=== PATIENT | female | born 1935 | race Caucasian/White ===

== ENCOUNTER 2024-03-05 11:12 | Outpatient (CLI) | payer MEDICARE, SELFPAY | END 2024-03-05 11:13 | disposition home or self-care (01) | LOC: AMB 03-12 06:15 | PROVIDERS: Visit Provider Emergency Medicine | DX: R55 Syncope and collapse (principal) | CPT/HCPCS: A0998 ==

== ENCOUNTER 2024-03-08 16:10 | Observation (INO) | payer MEDICARE, SELFPAY ==
[2024-03-08 16:14] VITALS: BP 124/67; PULSE 74; RESP 18; TEMP 36.7; O2SAT 96
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
[2024-03-08 17:14] LABS: Basophils Absolute Auto 0.05 K/uL (0.00-0.30); Basophils Percent Auto 0.6 % (0.0-3.0); Eosinophils Absolute Auto 0.19 K/uL (0.00-0.50); Eosinophils Percent Auto 2.2 % (0.0-7.0); Hematocrit 37.8 % (33.0-51.0); Hemoglobin* 12.1 gm/dL (12.0-16.0); Immature Granulocytes Abs Auto 0.03 K/uL (0.00-0.30); Immature Granulocytes Pct Auto 0.3 %; Lymphocytes Absolute Auto 1.89 K/uL (0.90-2.90); Lymphocytes Percent Auto 21.8 % (20-44); Mean Corpuscular HGB Conc 32 gm/dL (32-36); Mean Corpuscular Hemoglobin 30 pg (26-34); Mean Corpuscular Volume 94 fL (80-100); Monocytes Percent Auto 10.6 % (0.0-11.0); Neutrophils Absolute Auto 5.58 K/uL (1.7-7.0); Neutrophils Percent Auto 64.5 % (42.0-72.0); Platelet Count* 235 K/uL (140-440); RDW Coefficient of Variation % 13.9 % (11.5-15.5); Red Blood Count 4.03 m/uL (4.00-5.20); White Blood Count* 8.66 K/uL (4.50-11.00)
[2024-03-08 17:19] LABS: Slide Review Reflex No
[2024-03-08 17:28] LABS: Albumin* 4.5 g/dL (3.3-5.0); Chloride* 99 mmol/L (96-114); Potassium* 4.1 mmol/L (3.6-5.1); Sodium* 134 mmol/L (135-149)
[2024-03-08 17:30] LABS: Creatinine* 1.2 mg/dL (0.5-1.5); Estimated Glomerular Filt Rate 44 ml/min
[2024-03-08 17:31] LABS: Alanine Aminotransferase* 16 U/L (4-35); Alkaline Phosphatase* 47 U/L (40-150); Anion Gap 9 mEq/L (7-15); Aspartate Amino Transferase* 27 U/L (12-35); Bilirubin Total* 0.2 mg/dL (0.1-1.5); Blood Urea Nitrogen* 15 mg/dL (7-30); Calcium* 10.1 mg/dL (8.4-10.6); Carbon Dioxide* 26 mmol/L (20-32); Glucose* 104 mg/dL (60-115); Total Protein* 7.1 g/dL (6.0-8.3)
[2024-03-08 18:03] VITALS: BP 135/67; PULSE 80; RESP 18; TEMP 36.9; O2SAT 98
[2024-03-08 18:13] LABS: SARS PCR* Negative SARS-CoV-2 (Negative)
[2024-03-08 18:14] LABS: TSH With Reflex to FT4* 0.729 uIU/mL (0.270-4.200)
[2024-03-08 18:37] VITALS: RESP 18; O2SAT 98
--- NOTE | 2024-03-08 19:00 | PC.NURSE ---
End of Shift: Patient arrived to floor about 1755. Patient vitally stable, lungs clear, BS WNL, NO IV. Patient ambulates independently and denies pain. Patient oriented to self, day of week, and year. Patient is not cohesive when she speaks. Patient has been sitting in recliner eating dinner throughout admission. Patient does verbalize she wants to leave, patient so far has been redirectable.
[2024-03-08 19:21] VITALS: BP 147/71; PULSE 74; RESP 16; TEMP 36.4; O2SAT 98
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
[2024-03-08] MEDS: QUETIAPINE 25 MG TABLET 50 MG PO (20:57)
[2024-03-08] MEDS: DIVALPROEX SODIUM 125 MG CAP.DR.SPR PO (20:58)
[2024-03-08 21:47] LABS: Appearance Urine Clear (Clear); Bilirubin Urine Negative (Negative); Blood Urine Negative (Negative); Color Urine Yellow (Yellow); Glucose Urine Negative (Negative); Ketones Urine Negative (Negative); Leukocyte Esterase Urine Trace (Negative); Nitrite Urine Negative (Negative); Protein Urine Negative (Negative); Urobilinogen Urine 0.2 (0.2-1.0); pH Urine 5.5 (5.0-8.5)
[2024-03-08 22:04] LABS: RBC Urine 0-2 (0-2); Squamous Epithelial Cell Urine Moderate (None-Few)
[2024-03-08] MEDS: TRAZODONE HCL 50 MG TABLET 150 MG PO (22:05)
[2024-03-08 23:14] VITALS: RESP 16; O2SAT 98
--- NOTE | 2024-03-09 05:50 | PC.NURSE ---
End of shift [id number]: Upon initial assessment pt up in room with son-in-law and . pt cooperative and pleasant. Pt was able to have conversation with intermittent garbled words. As the night went on, harder for pt to communicate needs. Family left for the night at pt wanted to go to bed. after an hour pt quite restless but still cooperative. Pt ambulated in belcher x2 with SBA. Pt stated i'm tired but can't sleep. see eMAR for intervention. pt in and out of sleep the rest of the night and remains restless when awake. Pt pleasant throughout shift and able to be reorientated. Taking pills whole with water. Hearing aids at bedside. Continent of bladder. RN 1:1 overnight.
[2024-03-09 07:00] VITALS: RESP 16; O2SAT 99
[2024-03-09] MEDS: CYANOCOBALAMIN (VITAMIN B-12) 500 MCG TABLET 1000 MCG PO (08:28)
[2024-03-09] MEDS: RIVAROXABAN 10 MG TABLET PO (08:29)
[2024-03-09] MEDS: QUETIAPINE 25 MG TABLET PO (08:30)
[2024-03-09 09:23] VITALS: BP 117/81; PULSE 84; RESP 16; TEMP 36.5; O2SAT 99
[2024-03-09] MEDS: DIVALPROEX SODIUM 125 MG CAP.DR.SPR PO ×2 (09:53→20:00)
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
[2024-03-09] MEDS: SERTRALINE 50 MG TABLET 25 MG PO (11:04)
[2024-03-09 15:00] VITALS: RESP 16; O2SAT 98
--- NOTE | 2024-03-09 18:16 | PC.NURSE ---
End of shift [id number]: Pt cooperative and pleasant. Pt was in need of 1:1?during shift with either MITZI die inspector. Pt was responsive to name. Pt had difficulty finding words but was able to hold a conversation for the majority of the time. Pt is hard of hearing.?Pt was restless but still cooperative during the afternoon. Pt stated ?I need to get out of here.? Focus Puller used therapeutic communication and sat with Pt for a period of time before Pt fell asleep.?Pt ambulated in belcher multiple times, SBA. Taking pills whole with water. Continent of bladder. BM today. Reg diet/fluids tolerating well. Pt appears resting with MITZI at bedside, call light within reach. ?
[2024-03-09] MEDS: TRAZODONE HCL 50 MG TABLET 150 MG PO (20:00)
[2024-03-09] MEDS: QUETIAPINE 25 MG TABLET 50 MG PO (20:00)
[2024-03-09 23:00] VITALS: RESP 16
[2024-03-10 03:00] VITALS: RESP 18; O2SAT 97
[2024-03-10 07:00] VITALS: PULSE 84; RESP 18; O2SAT 97
[2024-03-10] MEDS: QUETIAPINE 25 MG TABLET PO (08:32)
[2024-03-10] MEDS: CYANOCOBALAMIN (VITAMIN B-12) 500 MCG TABLET 1000 MCG PO (08:32)
[2024-03-10] MEDS: DIVALPROEX SODIUM 125 MG CAP.DR.SPR PO ×2 (08:32→19:38)
[2024-03-10] MEDS: RIVAROXABAN 10 MG TABLET PO (08:32)
[2024-03-10] MEDS: SERTRALINE 50 MG TABLET 25 MG PO (08:32)
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
[2024-03-10 15:00] VITALS: PULSE 84; RESP 18; O2SAT 97
[2024-03-10] MEDS: TRAZODONE HCL 50 MG TABLET 150 MG PO (19:36)
--- NOTE | 2024-03-10 19:37 | PC.NURSE ---
Pt with hx of dementia was pleasant walking in belcher talking about music in belcher with marketing copywriter as well as sitting by nurses station coloring. No behaviors by pt.
[2024-03-10] MEDS: QUETIAPINE 25 MG TABLET 50 MG PO (19:38)
[2024-03-10] MEDS: ACETAMINOPHEN 325 MG TABLET 650 MG PO (20:13)
[2024-03-10] MEDS: hydrOXYzine pamoate 25 MG CAPSULE PO (20:13)
[2024-03-10 23:50] VITALS: RESP 18
--- NOTE | 2024-03-11 05:47 | PC.NURSE ---
End of shift [id number]: Pt sitting up coloring upon arrival. Pleasant and cooperative. Pt requesting to go to bed at 1930. Evening meds given early so pt could rest. Pt quite restless for awhile. See eMAR for interventions. Once pt settled in, she slept through the night. Pt quite confused but pleasant, cooperative and directable overnight.
[2024-03-11 07:00] VITALS: PULSE 77; RESP 18; O2SAT 94
[2024-03-11] MEDS: hydrOXYzine pamoate 25 MG CAPSULE PO ×2 (07:53→13:16)
[2024-03-11] MEDS: SERTRALINE 50 MG TABLET 25 MG PO (07:53)
[2024-03-11] MEDS: CYANOCOBALAMIN (VITAMIN B-12) 500 MCG TABLET 1000 MCG PO (07:53)
[2024-03-11] MEDS: DIVALPROEX SODIUM 125 MG CAP.DR.SPR PO ×2 (07:54→23:36)
[2024-03-11] MEDS: QUETIAPINE 25 MG TABLET PO ×2 (07:54→13:58)
[2024-03-11] MEDS: SODIUM CHLORIDE 0.9 % (FLUSH) 10 ML SYRINGE 5 ML IVF ×2 (07:54→23:37)
[2024-03-11] MEDS: RIVAROXABAN 10 MG TABLET PO (07:54)
[2024-03-11 08:00] VITALS: BP 135/61; PULSE 77; RESP 16; TEMP 36.6; O2SAT 95
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
--- NOTE | 2024-03-11 10:32 | PC.NURSE ---
Nursing assistants walked several times in both hallways with Julita. She was able to talk some about her life and working in [place] for a couple years. Then when she came back got , [place] and had 2 kids.
[2024-03-11 15:00] VITALS: PULSE 76; RESP 16; O2SAT 99
[2024-03-11 15:30] VITALS: BP 135/73; PULSE 76; RESP 16; TEMP 36.6; O2SAT 99
--- NOTE | 2024-03-11 16:19 | PC.SOCIAL ---
Addendum entered and electronically signed by MIGUEL ANGEL Good 03/12/24 09:42: Discharge planning/late entry: machine clothing worker also sent pt's daughter Payal an informational sheet on [facility] and a list of Area [facility] Facilities to her email at [email or web address]. Social work to follow-up as needed. Addendum entered and electronically signed by MIGUEL ANGEL Good 03/12/24 09:37: Discharge planning/late entry: machine clothing worker heard back from Kimani at [facility] late in the day yesterday and they shared that after reviewing the pt's documents that this worker sent earlier, they would be unable to accept the pt to their Memory Care facility due to her wandering and exit seeking and history of striking out at people although that has not been an issue in the hospital at all. Kimani asked that this worker inform the daughter of this update and that she will need to look for a different Memory Care facility. Kimani stated that if the pt's daughter had any questions she could reach out to them. Social work to follow-up as needed. Original Note: Discharge planning: machine clothing worker has been in contact with pt's daughter, Payal #[phone], throughout the day today. Payal and her family had started looking at Memory Care options for the pt last week and were interested in [facility]. Payal said that she originally looked at [facility] [place] and spoke to the director there who suggested that the family look at [facility] for placement as they most likely would not be able to meet the pt's needs at [facility]. machine clothing worker talked to JINA Licea at [facility] #[phone] and she stated that they were waiting on more medical records from [facility] in [place], [place] for the pt, but she also requested that this worker send her documentation from this hospital visit and a copy of the pt's POA, if available. machine clothing worker checked with pt's daughter, Payal, to see if this was okay with her and she said that it was okay for this worker to send all those requested documents to the [facility]. machine clothing worker sent to them to Anuja via secure email at [email or web address]. machine clothing worker also spoke to Jackelyn Iqbal #[phone], APS Investigation worker at [facility] who has an open case on the pt and stated that she has been helping pt's son, Anthony, with completing the MA application today over the phone and he should be submitting it to the [facility] today. Jackelyn also said that she can help expedite the process of this MA application once it is submitted by the family to the [facility]. Pt is not able to stay in observation in the hospital while this application is being processed([facility] requires the MA application to be submitted and completed by the [facility] before they would consider accepting the pt), so this worker will need to look for other facilities in the meantime for pt to discharge to. machine clothing worker spoke to pt's daughter about [facility] and she was very interested and the family is willing to put their money together to private pay for a facility while the pt's MA application is being processed. machine clothing worker reached out to Esthela Lopez at [facility] whom said they have an opening and can review the referral. machine clothing worker sent the referral to Esthela at [facility] via secure email. Social work to follow-up as needed.
[2024-03-11 23:00] VITALS: RESP 16; O2SAT 98
[2024-03-11] MEDS: QUETIAPINE 25 MG TABLET 50 MG PO (23:36)
[2024-03-12 07:00] VITALS: BP 141/68; PULSE 77; RESP 16; TEMP 36.5; O2SAT 100
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
--- NOTE | 2024-03-12 07:33 | PC.NURSE ---
Pt alert and oriented to self only. Pt was up x2 SBA to bathroom. Pt slept throughout most of night. Night uneventful. ?
[2024-03-12] MEDS: hydrOXYzine pamoate 25 MG CAPSULE PO ×2 (07:48→14:03)
[2024-03-12] MEDS: RIVAROXABAN 10 MG TABLET PO (08:38)
[2024-03-12] MEDS: DIVALPROEX SODIUM 125 MG CAP.DR.SPR PO ×2 (08:39→20:29)
[2024-03-12] MEDS: SERTRALINE 50 MG TABLET 25 MG PO (08:39)
[2024-03-12] MEDS: QUETIAPINE 25 MG TABLET PO (08:39)
[2024-03-12] MEDS: CYANOCOBALAMIN (VITAMIN B-12) 500 MCG TABLET 1000 MCG PO (08:39)
--- NOTE | 2024-03-12 13:06 | PC.SOCIAL ---
Discharge planning: recycling worker spoke to pt's daughter Karina this morning and informed about the update from [facility]. Pt's daughter was disappointed, but also interested in looking into [facility] on the [facility]. Esthela from [facility] also came to the hospital this morning and met with the pt and her daughter to assess for the [facility] Enh[facility]. Esthela informed this worker that she can most likely take the pt tomorrow straight to the [facility]. Esthela spoke to/met with pt's daughter, Karina, about this and she was in agreement with this plan. Esthela will follow-up with this worker later today about final discharge plans. Social work to follow-up as needed.
[2024-03-12 15:00] VITALS: RESP 16
--- NOTE | 2024-03-12 17:59 | PC.NURSE ---
End of shift [id number]: Pt cooperative and pleasant. Pt was in need of 1:1?during shift with either MITZI contracts attorney. Pt was responsive to name. Pt had clearer conversation during the shift, with occasional difficulty to finding words. Pt ambulated in belcher multiple times, SBA. Taking pills whole with water. Reg diet/fluids tolerating well. Pts and daughter visited her today. call light within reach. ?
[2024-03-12] MEDS: QUETIAPINE 25 MG TABLET 50 MG PO (20:31)
[2024-03-12 23:00] VITALS: RESP 16; O2SAT 100
[2024-03-13 07:00] VITALS: BP 144/92; PULSE 74; RESP 20; TEMP 36.5; O2SAT 98
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
[2024-03-13] MEDS: SERTRALINE 50 MG TABLET 25 MG PO (07:40)
[2024-03-13] MEDS: DIVALPROEX SODIUM 125 MG CAP.DR.SPR PO (07:40)
[2024-03-13] MEDS: CYANOCOBALAMIN (VITAMIN B-12) 500 MCG TABLET 1000 MCG PO (07:41)
[2024-03-13] MEDS: RIVAROXABAN 10 MG TABLET PO (07:41)
[2024-03-13] MEDS: QUETIAPINE 25 MG TABLET PO (07:41)
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
--- NOTE | 2024-03-13 10:01 | PC.SOCIAL ---
Discharge planning: Pt will discharge to [facility] on [facility] today. Pt's daughter will transport her. Discharge orders were secure emailed to Esthela Lopez at [facility] per her request. Esthela will take care of sending the prescriptions to the pharmacy. Pt's family was very thankful for all of the assistance from the hospital during the pt's stay. Social work to follow-up as needed.
== END 2024-03-13 11:11 ==
LOC: ED 17:49 → MEDSURG 18:02
PROVIDERS: Admitting Provider Internal Medicine; Emergency Provider Family Medicine; Visit Provider Internal Medicine
DX: G30.9 Alzheimer's disease, unspecified (principal); T74.91XA Unspecified adult maltreatment, confirmed, initial encounter; S40.021A Contusion of right upper arm, initial encounter; F02.818 Dementia in other diseases classified elsewhere, unspecified severity, with other behavioral disturbance; D68.51 Activated protein C resistance; Z79.01 Long term (current) use of anticoagulants; M79.7 Fibromyalgia; M19.90 Unspecified osteoarthritis, unspecified site; M54.50 Low back pain, unspecified; G89.29 Other chronic pain; F32.A Depression, unspecified; F41.9 Anxiety disorder, unspecified; Z86.718 Personal history of other venous thrombosis and embolism; Z66 Do not resuscitate
CPT/HCPCS: 36415; 80053; 81001; 84443; 85025; 87086; 87635; 97116; 97161; 97165; 97530; 99284; A9270; G0378

== ENCOUNTER 2024-03-26 08:56 | Outpatient (REF) | payer MEDICARE, SELFPAY ==
[2024-03-26 09:33] LABS: Chloride* 101 mmol/L (96-114)
[2024-03-26 09:34] LABS: Potassium* 4.4 mmol/L (3.6-5.1); Sodium* 134 mmol/L (135-149)
[2024-03-26 09:36] LABS: Creatinine* 1.1 mg/dL (0.5-1.5); Estimated Glomerular Filt Rate 49 ml/min
[2024-03-26 09:37] LABS: Anion Gap 10 mEq/L (7-15); Blood Urea Nitrogen* 25 mg/dL (7-30); Calcium* 9.6 mg/dL (8.4-10.6); Carbon Dioxide* 23 mmol/L (20-32); Glucose* 107 mg/dL (60-115)
== END 2024-03-26 08:57 | disposition home or self-care (01) ==
LOC: NPINS 08:56
PROVIDERS: PCP Family Medicine; Visit Provider Nurse Practitioner Gerontology
DX: E87.6 Hypokalemia (principal)
CPT/HCPCS: 80048

== ENCOUNTER 2024-07-20 00:30 | Emergency (ER) | payer MEDICARE, SELFPAY ==
--- OUTSIDE RECORDS SUMMARY | 2024-07-20 00:33 | XMS_ITS | Clinical Summary ---
Author [facility] Address [address] [place] [address] Care Team Providers Care Gun Stock Checker Name Role Phone Chloe Vazquez MD Primary Care Provider [phone] Source Comments You are receiving this document as you are listed as the primary care provider,follow-up provider, or the patient has been referred to you for consultation.This is in compliance with the Medicare andMedicaid EHR Incentive Program,which states Providers who transition their patient to another setting of careor provider of care or refers their patient to another provider of care shouldprovide summary care record for each transition of care or referral. Money Dashboard Allergies Active Allergy Reactions Criticality Noted Date Comments Bee Venom Other, see comments 10/30/2014 skin reaction Codeine Nausea 08/30/2002 Fenofibrate Myalgias 07/06/2005 Gluten Meal Gastrointestinal 11/10/2015 Iodinated Contrast Media Other, see comments IVP DYE Ketorolac Tromethamine Itching 10/17/2006 Levofloxacin Unknown 10/17/2006 Milk-Related Compounds Other, see comments 07/08 intolerance Penicillins Anaphylaxis High 02/20/2000 Sulfa Antibiotics Hives 02/20/2000 Medications * This document contains information received from the source organization and may not represent a complete record from that organization. vitamin B-12 (AKA: CYANOCOBALAMIN) 1000 MCG tablet Take 1 Tablet (1,000 mcg) by mouth daily. Active Multiple Vitamins-Mineral s (OCUVITE OR) Take 1 Capsule by mouth daily. Active rivaroxaban (XARELTO) 10 MG tablet Take 1 Tablet (10 mg) by mouth every evening with a meal. 90 Tablet 3 02/27/2023 Active LUTEIN OR Take 25 mg by mouth daily. Active traZODone (DESYREL) 50 MG tabletIndication s:Depression, unspecified depression type,Cognitive disorder Take 1 Tablet (50 mg) by mouth three times a day as needed for Sleep. 270 Tablet 3 01/16/2024 Active OLANZapine (ZYPREXA) 2.5 MG tabletIndication s:Depression, unspecified depression type,Cognitive disorder Take 1 Tablet (2.5 mg) by mouth three times a day. 270 Tablet 3 01/16/2024 Active dicyclomine (BENTYL) 20 MG tablet Take 1 Tablet (20 mg) by mouth 4 times daily as needed. 60 Tablet 02/20/2024 Active acetaminophen (TYLENOL) 500 MG tabletIndication s:Chronic midline thoracic back pain (HRC) Take 2 Tablets (1,000 mg) by mouth three times a day. 100 Tablet 11 03/01/2024 Active loperamide (IMODIUM) 1 mg/5 mL solutionIndicati ons:Diarrhea, unspecified type Take 10 mL (2 mg) by mouth 4 times daily as needed for Diarrhea. 360 mL 3 03/04/2024 Active Active Problems Problem Noted Date Diagnosed Date CAREPLAN: ADVANCE DIRECTIVES/CODE STATUS 024 Dementia 09/09/2022 Rectal pain 03/14/2022 Mild aortic valve sclerosis 03/16/2020 Overview (03/16/2020): Noted on Echo 03/2020 - CONCLUSIONS Normal biventricular function with LVEF 60%. Mild aortic sclerosis with mild aortic regurgitation. Mild mitral annular calcification. Essential hypertension 10/25/2018 Collagenous colitis 01/03/2017 Overview (01/03/2017): by biopsy on colonoscopy 10/25/16 ADHD (attention deficit hyperactivity disorder) 10/12/2016 Overview (02/11/2019): Neuropsych consult repeat 01/21/19 unchanged from 2017. Some subtle cerebral dysfunction but not meeting criteria for dementia or MCI. Chronic insomnia 08/22/2016 Ductal carcinoma in situ of right breast 015 Overview (12/10/2015): s/p right lumpectomy November 2014, Grade 3 DCIS, ER/MA+ termination clerk current use of anticoagulant therapy 0 10/12/2010 Overview (08/14/2017): Update from Spring 2017 IMO load. Gastroesophageal reflux disease without esophagi tis Overview (01/08/2016): LW Modifier: Rodríguez's not present on biopsy 02/11 Other hyperlipidemia Overview (01/08/2016): declines statins Irritable bowel syndrome Heterozygous factor V Leiden mutation Overview (09/09/2022): hetero factor V leinden mutation, lab dated 12/14/2000. On xarelto Chronic migraine without aura Overview (01/05/2017): on Inderal for this Hearing loss Anxiety with depression Fibromyalgia Compression fracture of L1 lumbar vertebra Overview (01/05/2017): This is seen on multiple films Osteoporosis with pathological fracture Overview (05/27/2020): based on L1 compression fx 09/2013. On/off alendronate- restarted Apr 2018. BD 2018-repeat 2020 H/O bee sting allergy Chronic kidney disease, stage 3b Major depressive disorder, recurrent, unspecifie d Resolved Problems Problem Noted Date Diagnosed Date Resolved Date Metabolic acidosis 03/14/2022 3 MCI (mild cognitive impairment) 11/23/2020 09/09/2022 Overview (07/05/2022): MOCA 11/20/20 was 17/30. Scored 16/30 in 06/2022. Note: Neuropsych evaluations 2017 and 2018 with same results. Those evaluations with no dementia/MCI. Attributed to ADHD in setting of anxiety/depression. Conclusion of cerebral dysfunction of subtle magnitude, unable to rule out degenerative process. History of temporal arteritis 06/08/2018 09/09/2022 Overview (09/20/2018): Left, biopsy proven Jun 08, 2018 Chronic pain syndrome 03/01/20172022 Overview (04/24/2017): Fibromyalgia, HAs, DJD- on gabapentin, Robaxin 750 mg HS sched and 500 daily prn, rare fioricet Hematuria 09/29/2016 02/04/2022 Overview (09/29/2016): Noted on recent UA. CT abd neg September 2016; anticoagulation likely contributor Hypokalemia 09/16/2016 09/29/2016 Acute kidney injury 09/16/2016 09/30/19 17 DEBORAH (generalized anxiety disorder) 04/21/2016 07/05/2022 History of DVT (deep vein thrombosis) 06/01/2015 09/09/2022 Overview (12/10/2015): Recurrent DVTs; factor V mutation; chronic anticoagulation CKD (chronic kidney disease) stage 3, GFR 30-59 ml/min 06/01/2015 11/08/2023 Cellulitis of face 03/23/2015 6 Trismus 03/23/2015 06/01/2015 Compression fx, lumbar spine 09/21/2013 06/01/2015 Thrombophlebitis of right saphenous vein 04/11/2013 11/04/2020 Heterozygous factor V Leiden mutation 03/28/2013 09/10/2013 Factor V Leiden mutation 10/12/201010/2013 Cataract 08/27/2007 12/21/2010 Overview (12/28/2016): LW Modifier: bilat surg 2006 ; Cataract NOS Cholecystitis 10/22/2006 12/21/2010 Overview (12/28/2016): LW Modifier: hx gallstone pancreatitis LW Onset: 09/11 ; Cholecystitis NOS Osteoarthritis 08/11/2006 12/21/2010 Overview (12/28/2016): DJD Embolism and thrombosis 07/14/200310/06 Overview (12/28/2016): LW Modifier: recorrent 10/22/06 post op LW Onset: [id number] ; Deep Venous Thrombosis Allergic rhinitis 11/04/2020 Disorder of bone and cartilage 10/01/2014 Overview (12/28/2016): LW Modifier: BD 09 ; Osteopenia Prediabetes 02/04/2022 Overview (12/28/2016): Glucose Intolerance (Impaired Tolerance) Benign neoplasm of colon Overview (12/28/2016): 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 Normal chest x-rays. 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 Overview (09/29/2016): has been to [facility] clinic Immunizations Immunization Administration Dates Next Due DT Ped 09/25/1989 Flu Vac Preserv Free (3+yrs) 01/04/2012,01/28/20 11 HepA Adult (19+ yrs) 11/27/2003,09/07/1999 Influenza IIV3 (Trivalent) F luzone Highdose, 65+ Yrs (81377) 12/24/2019,03/02/2015 Influenza IIV4 (Quadrivalent) 0.5mL (40113) 01/2013 Influenza IIV4 (Quadrivalent) Fluad, 65+ Yrs Influenza IIV4 (Quadrivalent) Fluzone, 65+ Yrs 0 12/24/2019 Influenza aIIV3 65+ Years (Fluad) 02/20/2024 Influenza, Unspecified Formulation 03/14/2017 Moderna Bivalent 12+ 02/02/2022 Moderna COVID-19 12+ 04/03/2023 Moderna Monovalent 12+ 08/01/2020,07/04/2020 PCV13 (Prevnar) 10/08/2014 PPSV23 (Pneumovax) 04/05/2017,01/18/2008 TDAP (BOOSTRIX) 01/04/2012 Td 01/23/2009,09/07/1999 Typhoid (Typhim Vi, IM) 11/27/2003 Zoster (Zostavax) 03/24/2011 Family History Medical History Relation Name Comments Cancer, Skin Father Anemia Mother DVT/PE Mother DVT Macular Degeneration Mother Diabetes Daughter several Clotting Disorder Other grandson f act V Hyperlipidemia Other several Hypertension Other several Cancer, Unknown Paternal Grandfather Migraines Sister DVT/PE Son PE Diabetes Son Amblyopia/Strabismus Negative Family History Blindness Negative Family History Cancer, Breast Negative Family History Cancer, Colon Negative Family History Cancer, Endometrial Negative Family History Cancer, Ovary Negative Family History Cataract Negative Family History Glaucoma Negative Family History Heart Disease Negative Family History Retinal Detachment Negative Family History Relation Name Status Comments Father Mother Daughter Other Paternal Grandfather Sister Son Social History Tobacco Use Types Packs/Day Years Used Date Smoking Tobacco: Former Cigarettes 0.3 7 0 05/08/1954 - 05/08/1961 Passive Smoke Exposure: Never Smokeless Tobacco: Never Tobacco Cessation:Counseling Given: Not Answered Alcohol Use Standard Drinks/Week Comments Not Currently 1 (1 standard drink = 0.6 oz pur e alcohol) occasion Humiliation, Afraid, Rape, and Kick questionnair e Answer Date Recorded Fear of Current or Ex-Partner Not on file Emotionally Abused Not on file 08/03/2023 Within the last year, have y ou been kicked, hit, slapped, or otherwise physically hurt by your partner or ex-partner? No 08/03/2023 Within the last year, have y ou been raped or forced to have any kind of sexual activity by your partner or ex-partner? 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 Not on file Not on file Not on file Last Filed Vital Signs Vital Sign Reading Time Taken Comments Blood Pressure 149/68 03/01/2024 3:25 PM CDT Pulse 74 03/01/2024 3:25 PM CDT Temperature 37.2 C (98.9 F) 02/05/2024 11:14 AM CDT Respiratory Rate 16 02/02/2024 6:01 PM CDT Oxygen Saturation 96% 02/02/2024 6:01 PM CDT Inhaled Oxygen Concentration - - Weight 57.1 kg (125 lb 12.8 oz) 03/01/2024 3:25 PM CDT Height 160 cm (5' 3) 03/01/2024 3:25 PM CDT Body Mass Index 22.28 03/01/2024 3:25 PM CDT Plan of Treatment Health Maintenance Due Date Last Done Comments RSV (1 - 1-dose 75+ series) 2011 Zoster/Shingles (2 of 3) 05/19/2011 03/24/2011 DTaP/Tdap/Td (5 - Tdap) 01/03/2022 01/04/20 12, 01/23/2009, 09/07/1999, Additional history exists COVID-19 Vaccine ( season) 2024 04/03/2023, 02/02/2022, 08/01/2020, Additional history exists Medicare Annual Wellness Visit 05/08/2024 05/25/2023, 09/09/2022, 06/16/2021, Additional history exists HepA Completed 11/27/2003, 09/07/1999 Pneumococcal 50+ Yrs Completed 04/05/2017, 10/08/2014, 01/18/2008, Additional history exists Dexa Completed 09/10/2018, 06/08, 09/21/2013, Additional history exists Influenza Completed 02/20/2024, 02/05, 12/24/2019, Additional history exists HepB Aged Out No longer eligi ble based on patient's age to complete this topic Hib Aged Out No longer eligi ble based on patient's age to complete this topic IPV (Polio) Aged Out No longer eligi ble based on patient's age to complete this topic MCV4 Aged Out No longer eligi ble based on patient's age to complete this topic Meningococcal B Aged Out No longer el igible based on patient's age to complete this topic Procedures Procedure Name Priority Date/Time Associated Diagnosis Comments DXA BONE DENSITY SPINE/HIP INC VERT FX ASSESS Routine 09/10/2018 11:32 AM CDT Temporal arteritis (HRC) jail current use of systemic steroids Age-related osteoporosis with current pathological fracture with routine healing, subsequent encounter from Last 3 Months or Most Recently Relevant to Health Maintenance Results * DEXA Bone Density Spine/Hip Including Vertebral Fracture Assessment (09/10/2018 11:32 AM CDT) Anatomical Region Laterality Modality Spine, Hip Radiographic Ameena ging Narrative 09/12/2018 10:05 AM CDT CLINIC DXA REPORT Patient Name: Julita Neville [place]: Thad Camarillo MD Densitometer: [employer] W (S/N [id number]) LAZARO BONE OSTEOPOROSIS RISK FACTORS FROM PATIENT QUESTIONNAIRE: The patient is a 83 y.o.female: Calcium intake is probably adequate. There is a self-reported personal history of vertebral fracture. There is no family history in a first degree relative of hip, pelvis, and/or spine fracture. Two or more self-reported falls over the past 12 months. Current alendronate therapy (for the past 5 years). BONE MINERAL DENSITY: Lumbar Spine Vertebrae Included: L1;L2;L3;L4 Bone Mineral Density (gm/cm2): 1.102 T-Score: 0.5 Z-Score: 3.3 Spine BMD is falsely overestimated due to degenerative sclerosis, artifacts, or surgical hardware Total Hip Bone Mineral Density (gm/cm2): 0.747 T-Score: -1.6 Z-Score: 0.6 Femoral Neck Bone Mineral Density (gm/cm2): 0.68 T-Score: -1.5 Z-Score: 0.9 FRAX 10 year probability major osteoporotic fracture: 29.3% 10 year probability hip fracture: 8.2% Actual fracture risks are lower than the FRAX fracture risks shown on scan output, because of current fracture prevention medication therapy COMPARISON TO PRIOR STUDY: Date of prior study: 06/17/2016 Lumbar spine change: +11.6% (may in part be due to progression of degenerative changes) Total hip change: no significant change outside of densitometer precision error VERTEBRAL FRACTURE ASSESSMENT: Grade 2 fracture of L1, also seen on lateral spine x-ray in 2014. No other vertebral fractures from T4 through L4 ASSESSMENT: 1. Mild low bone mass, based on T-score(s) at bone mineral density at the total hip and femoral neck 2. Patient is at moderate risk of fracture, based on age, fracture history, bone mineral density at all skeletal sites, and presence or absence of other risk factors. RECOMMENDATIONS: 1. Optimize calcium and vitamin D intake 2. Consider referral to physical therapy for evaluation of patients gait and balance, and for instruction on exercises to improve balance and hip girdle strength to reduce risk of falls, in light of her self-reported falls over the past year. 3. Reasonable to consider discontinuation of alendronate at this time 4. Repeat DXA in 2 years FRAX Explanation: The 10 year risks of hip and major osteoporotic fractures (clinical spine, forearm, hip or shoulder fracture) are calculated by the FRAX algorithm based on femoral neck bone density, age, gender, race/ethnicity, weight, height, previous fracture, parental hip fracture, smoking status, glucocorticoid intake, history of RA, secondary osteoporosis, and high alcohol consumption. FRAX Fracture Risk Categories in terms of major osteoporotic fractures: < 10% = low fracture risk ? 10% and <15% = mildly increased fracture risk ? 15% and <20% = moderately increased fracture risk ? 20% and <30% = high fracture risk ? 30% = very high fracture risk FRAX fracture risk estimates are adjusted for Trabecular Bone Score (TBS) Trabecular Bone Score (TBS) is a measure of the microarchitectural integrity of trabecular bone, and is derived from the [id number] changes of bone density embedded in the AP spine BMD image. TBS is only modestly correlated with BMD, and is modestly associated with incident major osteoporotic and hip fractures independent of BMD and other risk factors. TBS values of >1.350 indicate intact trabecular microarchitecture TBS values of 1.200 to 1.350 indicate partially degraded trabecular microarchitecture TBS values of <1.200 indicate degraded trabecular microarchitecture TBS for this patient is 1.165 National Osteoporosis Foundation Treatment Guideline A clinician may consider FDA-approved medical therapies in postmenopausal women and men aged 50 years and older, if one or more of the following is present (clinical correlation required and therapy may not always be indicated): 1. The patient has a hip or vertebral fracture. 2. T-score ? -2.5 at the femoral neck, hip, or spine after appropriate evaluation to exclude secondary causes. 3. Low bone mass (T-score between -1.0 and -2.5 at the femoral neck, hip or spine) and a 10-year probability of a hip fracture ? 3% or a 10-year probability of a major osteoporosis-related fracture ? 20% based on the FRAX scores. Saida Weiss PA-C RAD DEXA Final Resul t from Last 3 Months or Most Recently Relevant to Health Maintenance Insurance [facility] MED[employer]ARE ADVANTAGE [facility] MEDICARE ADVANTAGE [phone] [place] [id number] Advance Directives Documents on File Type Date Recorded Patient Vamp Strap Ironer Expl anation HEALTHCARE DIRECTIVE 05/04/2023 Benito Neville 023 Advance Directive/Living Will/Durable Power of Attny on file/POLST PN 02/24/2018 6:23 PM * Full Code (Latest Code Status on File) Date Activated Date Inactivated Comments 03/14/2022 1:16 AM 03/16/2022 4:32 PM * Full Code Date Activated Date Inactivated Comments 09/16/2016 4:59 PM 09/17/2016 7:29 PM * Full Code Date Activated Date Inactivated Comments 03/23/2015 11:42 AM 03/25/2015 9:00 PM * Full Code Date Activated Date Inactivated Comments 11/17/2014 1:24 PM 11/17/2014 5:52 PM Healthcare Agents on File Name Relationship Healthcare Agent Relationship Communication Benito Neville Health Care Agent (f rom Adv. Dir.) Health Care Agent Care Teams Gun Stock Checker Relationship Specialty Start Date End Date Chloe Vazquez MD [address] [place] [id number] PCP - General Family Practice 06/16/23
--- OUTSIDE RECORDS SUMMARY | 2024-07-20 00:33 | XMS_ITS | Encounter Summary ---
Author Organization [facility] Address [address] [place] [address] Care Team Providers Care Billing And Insurance Coordinator Name Role Phone Chloe Vazquez MD Primary Care Provider [phone] Reason for Visit * Reason Comments Prior Authorization For Medication OLANZ apine (ZYPREXA) 2.5 MG tablet Encounter Details Date Type Department Care Team (Late st Contact Info) Description 03/06/2024 Telephone Neurology at [address] 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 Suzan Garay RN 03/27/2024, 10:41 AM ATE DUTY RN * Seamus White - 03/22/2024 2:50 PM CST [place] received approval letter. Will put in providers folder Seamus White 03/22/2024, 2:51 PM ATE DUTY RN * Suzan Garay RN - 03/14/2024 10:30 AM CST Request for deadline extension for return of additional questions form faxed to [phone]. Provider will be back in clinic 03/15 to answer questions. Fax confirmation received. Form placed in provider's inbox Suzan Garay RN 03/14/2024, 10:32 AM ATE DUTY RN * Suzan Garay RN - 03/11/2024 1:34 PM CST Request for Redetermination of Medicare Prescription Drug Denial faxed to [facility] . Fax confirmation received. Suzan Garay RN 03/11/2024, 1:36 PM ATE DUTY RN * Suzan Garay RN - 03/08/2024 9:32 AM CDT Images from the original note were not included. Olanzapine PA denied. Denial letter printed and placed in provider's inbox. Dr. Chavarria, if you would like to appeal, please state reasons in the space provided in the letter. Suzan Garay RN 03/08/2024, 9:33 AM * Shila Kelley - 03/07/2024 10:01 AM CDT Received another fax regarding the Prior Authorization for Olanzapine. Fax placed in provider rightfax folder. Please follow up as appropriate. Thanks! Shila Kelley 03/07/2024, 10:02 AM * Shila Kelley - 03/06/2024 10:23 AM CDT ePa initiated for OLANZapine (ZYPREXA) 2.5 MG tablet. Fax can be found in provider RightFax folder. Thanks! Shila Kelley 03/06/2024, 10:23 AM documented in this encounter Plan of Treatment Not on file documented as of this encounter Visit Diagnoses Not on filedocumented in this encounter Care Teams Billing And Insurance Coordinator Relationship Specialty Start Date End Date Chloe Vazquez MD [address] [place] [address] PCP - General Family Practice 06/16/23 documented as of this encounter
--- OUTSIDE RECORDS SUMMARY | 2024-07-20 00:33 | XMS_ITS | Clinical Summary ---
Author Organization [facility] Address [address] [place] [address] Care Team Providers Care Pace Analyst Name Role Phone Leatha Zhang [facility] Care Provider Unavailable Allergies Active Allergy Reactions Criticality Noted Date Comments Codeine Nausea Only 08/30/2002 Fenofibrate Myalgia 07/06/2005 Other reaction(s): Myalgias Gluten GI Upset 11/10/2015 Iodinated Contrast Media Other - Describe In Comment Field 10/30/2014 IVP DYE Ketorolac Tromethamine Itching 10/17/2006 Lactose Other - Describe In Comment Field 08/05/2010 intolerance Levofloxacin *Unknown - Follow up needed 10/17/2006 Penicillins Anaphylaxis High 02/20/2000 Sulfa (Sulfonamide Antibiotics) Hives 02/20/2000 Venom-Honey Bee Other - Describe In Comment Field 10/30/2014 skin reaction Medications DULoxetine (CYMBALTA) 30 mg Delayed-release capsule TAKE 1 CAPSULE BY MOUTH ALONG WITH 60MG CAPSULE FOR A TOTAL DAILY DOSE OF 90MG 05/05/2023 Active DULoxetine (CYMBALTA) 60 mg Delayed-release capsule TAKE 1 CAPSULE BY MOUTH DAILY ALONG WITH 30MG CAPSULE FOR A TOTAL DAILY DOSE OF 90MG Active mirtazapine (REMERON) 7.5 mg tablet TAKE ONE-HALF TO 1 TABLET BY MOUTH EVERY NIGHT AT BEDTIME NEEDED Active rivaroxaban (XARELTO) 10 mg tablet Take 10 mg by mouth. 02/27/2023 Active Social History Tobacco Use Types Packs/Day Years Used Date Smoking Tobacco: Never Smokeless Tobacco: Never Tobacco Cessation:Counseling Given: Not Answered Comments Unknown Sex and Gender Information Value Date Recorded Sex Assigned at Not on file Legal Sex Female 1:48 AM CDT Gender Identity Not on file Sexual Orientation Not on file Obstetrics History Last Filed Vital Signs Vital Sign Reading Time Taken Comments Blood Pressure 135/74 05/11/2023 3:56 PM PAYROLL ASSISTANT Pulse 84 05/11/2023 3:56 PM PAYROLL ASSISTANT Temperature 36.7 C (98.1 F) 05/11/2023 3:56 PM PAYROLL ASSISTANT Respiratory Rate 16 05/11/2023 3:56 PM PAYROLL ASSISTANT Oxygen Saturation 97% 05/11/2023 3:56 PM PAYROLL ASSISTANT Inhaled Oxygen Concentration - - Weight - - Height - - Body Mass Index - - Plan of Treatment Health Maintenance Due Date Last Done Comments Tdap 1946 Depression screening for age 12+ 1948 BMI (ht and wt on same day) for age 18+ 1954 Tetanus booster 1956 Pneumococcal series for age 50+ (1 of 1 - PCV) 1986 Zoster (shingles) series for age 50+ (1 of 2) 1986 DEXA/DXA scan for age 65+ 2001 RSV vaccine for adults or (1 - 1-dose 75+ series) 2011 COVID-19 vaccine series ( season) 2024 04/03/2023, 02/02/2022, 08/01/2020, Additional history exists Influenza Vaccine (#1) 2024 Insurance [facility] Care Teams Pace Analyst Relationship Specialty Start Date End Date Leatha Zhang [facility] PCP - General Family Practice 05/11/23
[2024-07-20 00:34] VITALS: BP 146/81; PULSE 75; RESP 16; TEMP 36.2; O2SAT 95; BMI 21.9
--- NOTE | 2024-07-20 00:51 | CRLHL7_ITS ---
For Patients: As a result of the Century Cures Act, medical imaging exams and procedure reports are released immediately into your electronic medical record. You may view this report before your referring provider. If you have questions, please contact your health care provider. INDICATION: Abdominal pain. TECHNIQUE: CT abdomen and pelvis acquired with 58 cc Isovue 370 IV contrast. COMPARISON: None. FINDINGS: Lower chest: Mild bibasilar atelectasis. Coronary artery calcifications. Liver: Unremarkable. Normal in size and attenuation. No suspicious masses. Gallbladder and bile ducts: Mildly prominent bile ducts, likely secondary to post cholecystectomy state. Spleen: Unremarkable. Normal in size. No masses. Adrenal glands: Unremarkable. No nodules. Pancreas: Atrophy of the pancreas. Kidneys: Subcentimeter hypodense foci are too small to accurately characterize. No stones or hydronephrosis. GI tract: Fluid-filled colon. No evidence of obstruction. Appendix not visualized. Lymph nodes: No lymphadenopathy. Vasculature: Severe scattered atherosclerotic calcifications. Abdominal aorta is normal in caliber. Omentum/Peritoneum/Abdominal Wall: Unremarkable. No free air or significant free fluid. Pelvis: Unremarkable. Bones: Diffuse osteopenia. Degenerative changes. Levoconvex curvature of the lumbar spine. Chronic appearing L1 superior endplate compression deformity. IMPRESSION: 1. Fluid-filled colon, likely reflecting diarrheal state. 2. Otherwise no acute abdominal or pelvic abnormality. Please note that all CT scans at this facility use dose modulation, iterative reconstruction, and/or weight-based dosing when appropriate to reduce radiation dose to as low as reasonably achievable. Dictated by Fahad Pinzon MD @ 07/20/2024 2:05:05 AM (Electronically Signed)
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
[2024-07-20 01:18] LABS: Creatinine, Point-of-Care* 1.5 mg/dl (0.6-1.3)
[2024-07-20 01:18] LABS: Lactate Sepsis w/Reflex* 1.4 mmol/L (0.5-1.9)
[2024-07-20 01:20] LABS: Basophils Absolute Auto 0.04 K/uL (0.00-0.30); Basophils Percent Auto 0.4 % (0.0-3.0); Hematocrit 35.2 % (33.0-51.0); Hemoglobin* 11.4 gm/dL (12.0-16.0); Immature Granulocytes Abs Auto 0.06 K/uL (0.00-0.30); Immature Granulocytes Pct Auto 0.6 %; Lymphocytes Absolute Auto 2.16 K/uL (0.90-2.90); Lymphocytes Percent Auto 21.2 % (20-44); Mean Corpuscular HGB Conc 32 gm/dL (32-36); Mean Corpuscular Hemoglobin 30 pg (26-34); Mean Corpuscular Volume 91 fL (80-100); Monocytes Percent Auto 10.4 % (0.0-11.0); Neutrophils Absolute Auto 6.65 K/uL (1.7-7.0); Neutrophils Percent Auto 65.4 % (42.0-72.0); Platelet Count* 245 K/uL (140-440); Red Blood Count 3.85 m/uL (4.00-5.20); White Blood Count* 10.17 K/uL (4.50-11.00)
[2024-07-20 01:27] LABS: Slide Review Reflex No
--- OUTSIDE RECORDS SUMMARY | 2024-07-20 01:31 | XMS_ITS | Clinical Summary ---
Author Organization [facility] Address [address] [place] [id number] Care Team Providers Care Political Reporter Name Role Phone Leatha Zhang [facility] Care Provider Unavailable Allergies Active Allergy [...] Comments Blood Pressure 135/74 05/11/2023 3:56 PM NET WEB DEVELOPER Pulse 84 05/11/2023 3:56 PM NET WEB DEVELOPER Temperature 36.7 C (98.1 F) 05/11/2023 3:56 PM NET WEB DEVELOPER Respiratory Rate 16 05/11/2023 3:56 PM NET WEB DEVELOPER Oxygen Saturation 97% 05/11/2023 3:56 PM NET WEB DEVELOPER Inhaled Oxygen Concentration - - Weight - [...] history exists Influenza Vaccine (#1) 2024 Insurance [facility] MR Care Teams Political Reporter Relationship Specialty Start Date End Date Leatha Zhang [facility] PCP - General Family Practice 05/11/23
--- OUTSIDE RECORDS SUMMARY | 2024-07-20 01:31 | XMS_ITS | Clinical Summary ---
Author Organization [facility] Address [address] [place] [address] Care Team Providers Care Gimp Buttonhole Machine Operator Name Role Phone Chloe Vazquez MD Primary Care Provider [phone] Source Comments You are receiving this document [...] for each transition of care or referral. 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 Normal chest x-rays. 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 on file Not on file [...] 09/10/2018 11:32 AM CDT Temporal arteritis (HRC) senior care current use of systemic steroids Age-related osteoporosis with current pathological fracture with routine healing, subsequent encounter from Last 3 Months or Most Recently Relevant to Health Maintenance Results * DEXA Bone Density Spine/Hip Including Vertebral Fracture Assessment (09/10/2018 11:32 AM CDT) Anatomical Region Laterality Modality Spine, Hip Radiographic Ameena ging Narrative 09/12/2018 10:05 AM CDT CLINIC DXA REPORT Patient Name: Julita Neville Vian: Thad Camarillo MD Densitometer: GenerationStation W (S/N [id number]) LAZARO BONE OSTEOPOROSIS RISK FACTORS FROM PATIENT [...] trabecular bone, and is derived from the pxyxm-hs-metri changes of bone density embedded in the [...] Most Recently Relevant to Health Maintenance Insurance [facility] MEDICARE ADVANTAGE [facility] MEDICARE ADVANTAGE [id number] [place] [id number] Advance Directives Documents on File Type Date Recorded Patient Cell Biology Scientist Expl anation HEALTHCARE DIRECTIVE 05/04/2023 Benito Neville [...] Adv. Dir.) Health Care Agent Care Teams Gimp Buttonhole Machine Operator Relationship Specialty Start Date End Date Chloe Vazquez MD [address] [place] [address] PCP - General Family Practice 06/16/23
--- OUTSIDE RECORDS SUMMARY | 2024-07-20 01:31 | XMS_ITS | Encounter Summary ---
Author Organization [facility] Address [address] [place] [address] Care Team Providers Care Emergency Department Physician Name Role Phone Chloe Vazquez MD Primary Care Provider [phone] Reason for Visit * Reason Comments Prior Authorization For Medication OLANZ apine (ZYPREXA) 2.5 MG tablet Encounter Details Date Type Department Care Team (Late st Contact Info) Description 03/06/2024 Telephone Neurology at [address] 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 Suzan Garay RN 03/27/2024, 10:41 AM ERY MATER * Seamus White - 03/22/2024 2:50 PM CST [place] received approval letter. Will put in providers folder Seamus White 03/22/2024, 2:51 PM ERY MATER * Suzan Garay RN - 03/14/2024 10:30 AM CST Request for deadline extension for return of additional questions form faxed to [phone]. Provider will be back in clinic 03/15 to answer questions. Fax confirmation received. Form placed in provider's inbox Suzan Garay RN 03/14/2024, 10:32 AM ERY MATER * Suzan Garay RN - 03/11/2024 1:34 PM CST Request for Redetermination of Medicare Prescription Drug [facility] . Fax confirmation received. Suzan Garay RN 03/11/2024, 1:36 PM ERY MATER * Suzan Garay RN - 03/08/2024 9:32 [...] on filedocumented in this encounter Care Teams Emergency Department Physician Relationship Specialty Start Date End Date Chloe Vazquez MD [address] [place] [address] PCP - General Family Practice 06/16/23 documented as of this encounter
[2024-07-20 01:33] LABS: Albumin* 4.6 g/dL (3.3-5.0); Chloride* 101 mmol/L (96-114); Potassium* 4.4 mmol/L (3.6-5.1); Sodium* 138 mmol/L (135-149)
[2024-07-20 01:35] LABS: Bilirubin Total* 0.4 mg/dL (0.1-1.5); Blood Urea Nitrogen* 28 mg/dL (7-30); Creatinine* 1.3 mg/dL (0.5-1.5); Est. Creatinine Clearance* 23.66; Estimated Glomerular Filt Rate 40 ml/min
[2024-07-20 01:36] LABS: Alanine Aminotransferase* 13 U/L (4-35); Alkaline Phosphatase* 67 U/L (40-150); Anion Gap 13 mEq/L (7-15); Aspartate Amino Transferase* 26 U/L (12-35); Calcium* 9.6 mg/dL (8.4-10.6); Carbon Dioxide* 24 mmol/L (20-32); Glucose* 104 mg/dL (60-115); Lipase* 66 U/L (23-300); Total Protein* 7.5 g/dL (6.0-8.3)
[2024-07-20 01:39] LABS: C Reactive Protein* 1.3 mg/dL (0.5-1.0)
--- NOTE | 2024-07-20 02:03 | ED.NURSE ---
Pt assisted to the restroom for third bowel movement since arrival.
== END 2024-07-20 02:19 | disposition home or self-care (01) ==
PROVIDERS: Emergency Provider Family Medicine; PCP Family Medicine
DX: F03.90 Unspecified dementia, unspecified severity, without behavioral disturbance, psychotic disturbance, mood disturbance, and anxiety (principal); Z71.1 Person with feared health complaint in whom no diagnosis is made
CPT/HCPCS: 36415; 74177; 80053; 81003; 82565; 83605; 83690; 85025; 86140; 99284; Q9967

== ENCOUNTER 2024-12-02 12:02 | Outpatient (CLI) | payer MEDICARE, SELFPAY | END 2024-12-02 12:03 | disposition home or self-care (01) | PROVIDERS: PCP Family Medicine; Visit Provider Family Medicine | DX: S89.92XA Unspecified injury of left lower leg, initial encounter (principal); W19.XXXA Unspecified fall, initial encounter; Y92.092 Bedroom in other non-institutional residence as the place of occurrence of the external cause | CPT/HCPCS: A0425; A0429 ==

== ENCOUNTER 2024-12-02 12:19 | Inpatient (IN) | payer MEDICARE, SELFPAY ==
--- OUTSIDE RECORDS SUMMARY | 2024-12-02 12:22 | XMS_ITS | Clinical Summary ---
Author Organization [facility] Address [address] [place] [id number] Care Team Providers Care Senior Government Program Analyst Name Role Phone Leatha Zhang [facility] Care Provider Unavailable Allergies Active Allergy Reactions [...] Comments Blood Pressure 135/74 05/11/2023 3:56 PM SAFETY DEPOSIT CLERK Pulse 84 05/11/2023 3:56 PM SAFETY DEPOSIT CLERK Temperature 36.7 C (98.1 F) 05/11/2023 3:56 PM SAFETY DEPOSIT CLERK Respiratory Rate 16 05/11/2023 3:56 PM SAFETY DEPOSIT CLERK Oxygen Saturation 97% 05/11/2023 3:56 PM SAFETY DEPOSIT CLERK Inhaled Oxygen Concentration - - Weight - - Height - - Body Mass Index - - Plan of Treatment Health Maintenance Due Date Last Done Comments Tetanus booster 1946 Depression screening for age 12+ 1948 BMI (ht and wt on same day) for age 18+ 1954 Pneumococcal series for age 50+ (1 of 1 - PCV) 1986 Zoster (shingles) series for age 50+ (1 of 2) 1986 DEXA/DXA scan for age 65+ 2001 RSV vaccine for adults or (1 - 1-dose 75+ series) 2011 COVID-19 vaccine series ( season) 2024 04/03/2023, 02/02/2022, 08/01/2020, Additional history exists Influenza Vaccine (#1) 2025 Hepatitis B series for 19+ Aged Out N o longer eligible based on patient's age to complete this topic Insurance [facility] MR Care Teams Senior Government Program Analyst Relationship Specialty Start Date End Date Leatha Zhang Family [facility] PCP - General Family Practice 05/11/23
--- OUTSIDE RECORDS SUMMARY | 2024-12-02 12:22 | XMS_ITS | Clinical Summary ---
[facility] Organization [facility] Address [address] [place] [address] Care Team Providers Care Trial Judge Name Role Phone Chloe Vazquez MD Primary Care Provider [phone] Source Comments You are receiving this document [...] for each transition of care or referral. 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 Normal chest x-rays. 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 Not on file [...] Maintenance Due Date Last Done Comments RSV Vaccine (1 - 1-dose 75+ series) 2011 Zoster/Shingles Vaccine (2 of 3) 05/19/2011 03/24/2011 DTaP/Tdap/Td Vaccine (5 - Tdap) 01/03/2022 01/04/2012, 01/23/2009, 09/07/1999, Additional history exists COVID-19 Vaccine ( season) 2024 04/03/2023, 02/02/2022, 08/01/2020, Additional history exists Medicare Annual Wellness Visit 05/08/2024 05/25/2023, 09/09/2022, 06/16/2021, Additional history exists Influenza Vaccine (#1) 2025 , 02/19/2021, 12/24/2019, Additional history exists HepA Vaccine Completed 11/27/2003, 09/07/1999 Pneumococcal Vaccine 50+ Yrs Completed , 10/08/2014, 01/18/2008, Additional history exists Dexa Completed 09/10/2018, 06/08, 09/21/2013, Additional history exists HepB Vaccine Aged Out No longer eligi ble based on patient's age to complete this topic Hib Vaccine Aged Out No longer eligi ble based on patient's age to complete this topic MCV4 Vaccine Aged Out No longer eligi ble based on patient's age to complete this topic Meningococcal B Vaccine Aged Out No l onger eligible based on patient's age to complete this topic Procedures Procedure Name Priority Date/Time Associated Diagnosis Comments DXA BONE DENSITY SPINE/HIP INC VERT FX ASSESS Routine 09/10/2018 11:32 AM CDT Temporal arteritis (HRC) nursing home current use of systemic steroids Age-related osteoporosis with current pathological fracture with routine healing, subsequent encounter from Last 3 Months or Most Recently Relevant to Health Maintenance Results * DEXA Bone Density Spine/Hip Including Vertebral Fracture Assessment (09/10/2018 11:32 AM CDT) Anatomical Region Laterality Modality Spine, Hip Radiographic Ameena ging Narrative 09/12/2018 10:05 AM CDT CLINIC DXA REPORT Patient Name: Julita Neville Mckenzie: Thad Camarillo MD Densitometer: HoloUse[employer] at Night W (S/N [id number]) LAZARO BONE OSTEOPOROSIS RISK FACTORS FROM PATIENT [...] trabecular bone, and is derived from the zeail-je-vzfzs changes of bone density embedded in the [...] Most Recently Relevant to Health Maintenance Insurance [facility] MEDICARE ADVANTAGE [facility] MEDICARE ADVANTAGE [id number] [place] [id number] Advance Directives Documents on File Type Date Recorded Patient Information Systems Operator Expl anation HEALTHCARE DIRECTIVE 05/04/2023 Benito Neville [...] Adv. Dir.) Health Care Agent Care Teams Trial Judge Relationship Specialty Start Date End Date Chloe Vazquez MD [address] [place] [address] PCP - General Family Practice 06/16/23
[2024-12-02 12:31] VITALS: BP 139/57; PULSE 73; RESP 18; TEMP 36.6; O2SAT 91
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
--- NOTE | 2024-12-02 13:04 | CRLHL7_ITS ---
For Patients: As a result of the Cures Act, medical imaging exams and procedure reports are released immediately into your electronic medical record. You may view this report before your referring provider. If you have questions, please contact your health care provider. Indication: found down, ?c/o pain earlier Technique: Three views of the lumbar spine. Comparison: 07/20/2024. Findings: Moderate multilevel degenerative changes of the visualized spine with moderate S shaped curvature of the lumbar spine and redemonstration of associated spondylolisthesis. Redemonstration of moderate L1 superior endplate compression deformity. No acute displaced fracture is seen. Osteopenia. Right upper quadrant abdominal surgical clips. Moderate stool burden is seen throughout the colon. Moderate vascular calcification. Impression: Moderate multilevel degenerative changes of the visualized spine with moderate S shaped curvature of the lumbar spine and redemonstration of associated spondylolisthesis. Redemonstration of moderate L1 superior endplate compression deformity. No acute displaced fracture is seen. Dictated by Tito Lay MD @ 12/02/2024 2:04:48 PM (Electronically Signed)
--- NOTE | 2024-12-02 13:05 | CRLHL7_ITS ---
For Patients: As a result of the Century Cures Act, medical imaging exams and procedure reports are released immediately into your electronic medical record. You may view this report before your referring provider. If you have questions, please contact your health care provider. INDICATION: Unwitnessed fall, patient on blood thinners. TECHNIQUE: CT head without contrast. COMPARISON: None. FINDINGS: CSF spaces: Within normal limits for age. Brain parenchyma: Diffuse cerebral atrophy with low-density in the deep white matter. Holly-white differentiation is distinct. Punctate 1 millimeter high density within the right aspect of the imelda. No adjacent edema. Skull base and calvarium: The visualized paranasal sinuses and mastoid air cells demonstrate no acute or significant findings. The visualized orbits are grossly unremarkable. No skull fractures. Atherosclerosis. Left temporomandibular joint osteoarthritis. IMPRESSION: 1. No calvarial fracture. 2. Pinpoint 1 millimeter high density within the right aspect of the imelda. Appearance is consistent with minimal pontine calcification as opposed to a pinpoint brainstem hemorrhage. 3. Cerebral atrophy with nonspecific white matter disease, likely microangiopathy. Please note that all CT scans at this facility use dose modulation, iterative reconstruction, and/or weight-based dosing when appropriate to reduce radiation dose to as low as reasonably achievable. Dictated by Denver Montoya MD @ 12/02/2024 2:08:54 PM (Electronically Signed)
[2024-12-02 15:14] VITALS: BP 181/84; PULSE 88; RESP 22; O2SAT 90
--- NOTE | 2024-12-02 15:21 | CRLHL7_ITS ---
For Patients: As a result of the Cures Act, medical imaging exams and procedure reports are released immediately into your electronic medical record. You may view this report before your referring provider. If you have questions, please contact your health care provider. INDICATION: Fall, left hip pain, injury TECHNIQUE: Pelvis radiograph, Hip radiograph 3 views left COMPARISON: None FINDINGS: Bone: There is a displaced transcervical fracture of the left proximal femur noted. Joint: The hip joints are unremarkable. The visualized sacroiliac joints are unremarkable in appearance. The pubic symphysis is normal in appearance. Soft tissue: Unremarkable. No radiopaque foreign bodies are seen. IMPRESSION: 1. There is a displaced transcervical fracture of the left proximal femur noted. Dictated by Isaiah Iverson MD @ 12/02/2024 6:41:37 PM Dictated by: Isaiah Iverson MD @ 12/02/2024 18:41:40 (Electronically Signed)
[2024-12-02] MEDS: ACETAMINOPHEN 500 MG TABLET 1000 MG PO (15:30)
--- NOTE | 2024-12-02 17:30 | CRLHL7_ITS ---
For Patients: As a result of the Century Cures Act, medical imaging exams and procedure reports are released immediately into your electronic medical record. You may view this report before your referring provider. If you have questions, please contact your health care provider. Indication: Follow-up spot seen in the imelda on previous CT Technique: Volumetric multidetector CT images of the head were obtained without the administration of low osmolar intravenous contrast. Comparison: CT head December 02, 2024 Findings: Overall exam is partially nondiagnostic due to extensive motion artifact which limits evaluation of hemorrhage and/or loss of roach-white differentiation changes. There is redemonstration of a focal punctate hyperdensity within the posterior right cesar imelda without significant increase in size. There is no obvious perifocal edema. No other obvious intra-axial or extra-axial fluid collections are identified. Impression: Overall, exam is partially nondiagnostic due to motion artifact during multiple repeat images with grossly stable appearance of focal hyperdense lesion within the right cesar imelda which could represent calcification within a small vascular lesion. No obvious increase in size or perifocal edema. Please note that all CT scans at this facility use dose modulation, iterative reconstruction, and/or weight-based dosing when appropriate to reduce radiation dose to as low as reasonably achievable. Dictated by Austin Llanes MD @ 12/02/2024 7:00:43 PM (Electronically Signed)
[2024-12-02] MEDS: MORPHINE 4 MG/ML INJ 2 MG IVP ×3 (18:50→22:16)
[2024-12-02 18:51] LABS: Hematocrit* 33.3 % (33.0-51.0); Hemoglobin* 10.7 gm/dL (12.0-16.0); Immature Granulocytes Abs Auto 0.10 K/uL (0.00-0.30); Immature Granulocytes Pct Auto 0.8 %; Mean Corpuscular HGB Conc 32 gm/dL (32-36); Mean Corpuscular Hemoglobin 28 pg (26-34); Mean Corpuscular Volume 88 fL (80-100); RDW Coefficient of Variation % 13.0 % (11.5-15.5); Red Blood Count* 3.80 m/uL (4.00-5.20); White Blood Count* 12.89 K/uL (4.50-11.00)
[2024-12-02 18:54] LABS: Lymphocytes Absolute Auto 0.90 K/uL (0.90-2.90); Slide Review Reflex No
[2024-12-02 19:00] LABS: Chloride* 102 mmol/L (96-114); Sodium* 134 mmol/L (135-149)
[2024-12-02 19:01] LABS: Potassium* 4.2 mmol/L (3.6-5.1)
[2024-12-02 19:03] LABS: Blood Urea Nitrogen* 21 mg/dL (7-30); Creatinine* 0.9 mg/dL (0.5-1.5); Estimated Glomerular Filt Rate 61 ml/min
[2024-12-02 19:04] LABS: Anion Gap 9 mEq/L (7-15); Calcium* 9.6 mg/dL (8.4-10.6); Carbon Dioxide* 23 mmol/L (20-32); Glucose* 128 mg/dL (60-115)
[2024-12-02 19:05] LABS: INR 1.25 (0.91-1.10); Prothrombin Time 16.6 Seconds
[2024-12-02 20:10] VITALS: BP 176/94; PULSE 94; RESP 18; RESP 20; O2SAT 92; O2SAT 94
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
[2024-12-02 20:40] VITALS: RESP 20; O2SAT 92
[2024-12-02] MEDS: SODIUM CHLORIDE 0.9 % (FLUSH) 10 ML SYRINGE 5 ML IVF (22:17)
[2024-12-02] MEDS: QUETIAPINE 25 MG TABLET 50 MG PO (22:23)
[2024-12-02] MEDS: ACETAMINOPHEN 325 MG TABLET 650 MG PO (22:23)
[2024-12-02] MEDS: DIVALPROEX SODIUM 125 MG CAP.DR.SPR PO (22:40)
[2024-12-02 23:00] VITALS: PULSE 95; RESP 18; O2SAT 92
[2024-12-03] VITALS (22 sets, daily range): BP systolic 92–196; BP diastolic 50–105; PULSE 80–103; RESP 14–24; TEMP 36.4–37.2; O2SAT 90–100
[2024-12-03] MEDS: MORPHINE 4 MG/ML INJ 2 MG IVP ×3 (03:40→13:51)
[2024-12-03 06:56] LABS: HCO3 VBG 25 mmol/L (21-28); Lactate* 1.1 mmol/L (0.5-1.9); PCO2 VBG 36 mmHG (40-50); PO2 VBG 39.4 mmHG (25-47); pH VBG 7.462 (7.32-7.43)
[2024-12-03 06:59] LABS: Hematocrit* 33.2 % (33.0-51.0); Hemoglobin* 10.8 gm/dL (12.0-16.0); Mean Corpuscular HGB Conc 33 gm/dL (32-36); Mean Corpuscular Hemoglobin 28 pg (26-34); Mean Corpuscular Volume 87 fL (80-100); Red Blood Count* 3.81 m/uL (4.00-5.20); White Blood Count* 12.15 K/uL (4.50-11.00)
--- NOTE | 2024-12-03 07:04 | PC.NURSE ---
Pt arrived to the floor at 2007. Alert and restless. Sensory fidgets, low stimulus environment and prn 1:1 provided. Pt hypertensive, otherwise, VSS. Pt unable to verbalize needs, though behavior indicated pain, prn morphine given. Around 399 pt had yet to void, bladder scanned which showed 643. Osmar was called, shields order put in and shields placed. Pt in bed, appears to be resting, call light within reach, alarms and video monitoring on.? ?
[2024-12-03 07:13] LABS: Slide Review Reflex No
[2024-12-03 07:16] LABS: Chloride* 102 mmol/L (96-114); Potassium* 4.6 mmol/L (3.6-5.1); Sodium* 133 mmol/L (135-149)
[2024-12-03 07:19] LABS: Anion Gap 7 mEq/L (7-15); Blood Urea Nitrogen* 25 mg/dL (7-30); Carbon Dioxide* 24 mmol/L (20-32); Creatinine* 0.9 mg/dL (0.5-1.5); Estimated Glomerular Filt Rate 61 ml/min
[2024-12-03 07:20] LABS: Calcium* 9.1 mg/dL (8.4-10.6); Glucose* 114 mg/dL (60-115)
--- NOTE | 2024-12-03 09:28 | P.IMPN_ITS ---
Assessment and Plan Assessment and plan (1) Closed fracture of left hip: Problem comment: - Left hip x-ray 12/02/2024 status post sliding off the edge of the bed: There is a displaced transcervical fracture of the left proximal femur noted. - patient unable to speak on her own behalf. Her daughter, Karina, as her power of school bus dispatcher for health and guardian. Karina, in consultation with her brother, as well as Emergency Department medical staff consulted with the Orthopedics surgery staff, have opted to have an orthopedic consultation with consideration for orthopedic stabilization of this fracture so patient might have a opportunity to walk again, which is extremely important for the patient - physical therapy and occupational therapy consultation. - health social work professor to assist with discharge disposition planning - scheduled acetaminophen and p.r.n. oxycodone for pain management 12/03: We held her Xarelto dose for today. Will discuss with Ortho when is the exact time of her surgery because patient is a high risk for DVT, will consider heparin drip if surgery is going to be delayed for couple of days. Status: Acute (2) Fall: Problem comment: - slid off edge of bed on 12/02/2024 culminating in left femoral neck fracture - evolving unsteady gait Status: Acute (3) Dementia of Alzheimer's type with behavioral disturbance: Problem comment: - Advanced - patient at a higher risk for hospital delirium, and thus work closely with patient family Status: Acute (4) Homozygous Factor V Leiden mutation: Problem comment: - history of spontaneous venous thromboembolism - chronically anticoagulated with rivaroxaban 10 mg once daily - for now will hold the rivaroxaban preoperatively. - Xarelto dosage: For the 1st 6 months after DVT it should be full does at 20 mg daily, but for reduction in the risk of DVT/PE recurrence: XARELTO 10 mg once daily; Taken with or without food after 6 months of standard anticoagulant treatment in patients with CrCl =15 mL/min Status: Acute (5) Chronic anticoagulation: Problem comment: - chronically anticoagulated with rivaroxaban 10 mg once daily - for now will hold the rivaroxaban preoperatively - Xarelto dosage: For the 1st 6 months after DVT it should be full does at 20 mg daily, but for reduction in the risk of DVT/PE recurrence: XARELTO 10 mg once daily; Taken with or without food after 6 months of standard anticoagulant treatment in patients with CrCl =15 mL/min Status: Acute (6) History of venous thromboembolism: Problem comment: As above Status: Acute (7) Chronic vertebral fracture due to osteoporosis: Problem comment: CT: Redemonstration of moderate L1 superior endplate compression deformity. No acute displaced fracture is seen. Status: Acute Plan As above Patient will need rehab status post surgery Total Time Spent Total Time Spent: Today I spent 50 minutes seeing the patient, reviewing Expanse and EPIC notes/diagnostics, discussing the care plan with our care time that includes so cial work, PT/OT, pharmacy, RT, fdc and documenting my impressions and plan in the medical record. Subjective Date Seen: 12/03/24 Interval history: Patient seen and examined at bedside today. Patient is severely demented and does not really follow commands. Patient is afebrile unremarkable vital signs, unremarkable labs, EKG reviewed. Patient is on Xarelto 10 mg for prevention of VTE as patient has history of DVT in the past and she has history of homozygous factor 5 laden mutation. We held her Xarelto dose for today. Will discuss with Ortho when is the exact time of her surgery because patient is a high risk for DVT, will consider heparin drip if surgery is going to be delayed for couple of days. Other PMHx: HTN, HLD, IBS, GERD, Factor V/hx of DVT-on xarelto, Osteoporosis, MCI, Migraines, fibromyalgia, dementia. Exam Narrative: Exam Narrative: Physical exam GENERAL: Demented, no acute distress. HEAD AND NECK: Atraumatic, normocephalic CARDIOVASCULAR: RRR. Normal S1, S2. No murmurs. RESPIRATORY: Clear to auscultation B/L. Good air entry B/L. No wheezes or rhonchi. GASTROINTESTINAL: Not distended, not tender to palpation. NEUROLOGY: Alert, awake, not oriented. MSK: Lt LE shortened and slightly rotated Const: Vital Signs, click to edit/add: Vital Signs - 24 hr 12/02/24 12:31 12/02/24 15:14 12/02/24 20:10 Temperature 98 F Pulse Rate [Pulse Oximeter] 94 Pulse Rate [Right Pulse Oximeter] 73 88 Respiratory Rate 18 22 18 Blood Pressure [Le ft Arm] 176/94 H Blood Pressure [Ri ght Upper Arm] 139/57 L 181/84 H Pulse Oximetry 91 90 94 Oxygen Delivery Me thod Room Air Room Air Room Air Oxygen Flow Rate 12/02/24 20:10 12/02/24 20:40 12/02/24 23:00 Temperature Pulse Rate [Pulse Oximeter] 95 Pulse Rate [Right Pulse Oximeter] Respiratory Rate 20 20 18 Blood Pressure [Le ft Arm] Blood Pressure [Ri ght Upper Arm] Pulse Oximetry 92 92 92 Oxygen Delivery Me thod Nasal Cannula Nasal Cannula Room Air Oxygen Flow Rate 1.5 1.5 12/02/24 23:00 12/02/24 23:00 12/03/24 03:00 Temperature 97.6 F Pulse Rate [Pulse Oximeter] 95 95 Pulse Rate [Right Pulse Oximeter] Respiratory Rate 18 18 18 Blood Pressure [Le ft Arm] 154/93 H Blood Pressure [Ri ght Upper Arm] Pulse Oximetry 92 97 Oxygen Delivery Me thod Room Air Room Air Oxygen Flow Rate 1.5 12/03/24 07:00 12/03/24 09:07 Temperature 98.9 F Pulse Rate [Pulse Oximeter] 91 Pulse Rate [Right Pulse Oximeter] Respiratory Rate 16 16 Blood Pressure [Le ft Arm] 196/94 H Blood Pressure [Ri ght Upper Arm] Pulse Oximetry 91 91 Oxygen Delivery Me thod Room Air Room Air Oxygen Flow Rate Labs Labs: Laboratory Results - last 24 hr 12/02/24 12/03/24 18:35 06:45 WBC 12.89 H 12.15 H RBC 3.80 L 3.81 L Hgb 10.7 L 10.8 L Hct 33.3 33.2 MCV 88 87 MCH 28 28 MCHC 32 33 RDW Coeff of Heath 13.0 Plt Count 221 205 Neut % (Auto) 81.5 H Lymph % (Auto) 7.1 L Williamson % (Auto) 10.2 Eos % (Auto) 0.2 Baso % (Auto) 0.2 Neut # (Auto) 10.50 H Lymph # (Auto) 0.90 Williamson # (Auto) 1.30 H Eos # (Auto) 0.00 Baso # (Auto) 0.00 Abs Immat Gran (auto) 0.10 Imm/Tot Granulo (auto) 0.8 INR 1.25 H VBG pH 7.462 H VBG pCO2 36 L VBG pO2 39.4 VBG HCO3 25 Sodium 134 L 133 L Potassium 4.2 4.6 Chloride 102 102 Carbon Dioxide 23 24 Anion Gap 9 7 BUN 21 25 Creatinine 0.9 0.9 Estimated GFR 61 61 Glucose 128 H 114 Lactate 1.1 Calcium 9.6 9.1 Phosphorus 3.0 Magnesium 1.7 TSH 2.370
[2024-12-03] MEDS: ACETAMINOPHEN 325 MG TABLET 650 MG PO (09:41)
[2024-12-03] MEDS: POTASSIUM CHLORIDE 10 MEQ CAPSULE ER PO (09:41)
[2024-12-03] MEDS: SODIUM CHLORIDE 0.9 % (FLUSH) 10 ML SYRINGE 5 ML IVF (09:41)
--- NOTE | 2024-12-03 09:41 | REH.PT ---
Patient is awaiting medical clearance for surgery, PT eval on hold per nsg until s/p ortho surgery.
--- NOTE | 2024-12-03 11:06 | REH.OT ---
OT consult order received. Pt. scheduled to have surgery today. OT will hold evaluation until medically appropriate.
[2024-12-03] MEDS: LACTATED RINGERS 1000 ML 1,000 ML 75 ML IV ×2 (12:20→19:10)
[2024-12-03] MEDS: 0.9 % SODIUM CHLORIDE 500 ML 500 ML IV (12:21)
--- NOTE | 2024-12-03 15:00 | CRLHL7_ITS ---
For Patients: As a result of the Cures Act, medical imaging exams and procedure reports are released immediately into your electronic medical record. You may view this report before your referring provider. If you have questions, please contact your health care provider. INDICATION: Left hip arthroplasty. TECHNIQUE: Fluoroscopically guided intraoperative evaluation at the time of a left hip arthroplasty. Two spot images obtained intraoperatively. FINDINGS: Left hip arthroplasty. The components are adequately aligned. 21.8 seconds fluoroscopy time utilized intraoperatively. IMPRESSION: Left hip arthroplasty. 21.8 seconds of fluoroscopy time utilized intraoperatively. Dictated by Thad Villalobos MD @ 12/04/2024 8:34:26 AM (Electronically Signed)
[2024-12-03] MEDS: TRANEXAMIC ACID 100 MG/ML INJ 1000 MG IV (15:42)
--- NOTE | 2024-12-03 16:29 | PC.SOCIAL ---
Discharge planning: submarine worker spoke with pt's daughter/POA, Karina, via phone this afternoon. Pt's daughter would really like the pt to be able to go back to her [facility] unit after her hospital stay, if possible. If that is not possible, Karina would like for this worker to see if they can take her at [facility] the [facility] campus. submarine worker will reach out to Rox at [facility] to see what her thoughts are about the pt coming back to somewhere on the [facility] campus. Social work to follow-up as needed.
--- NOTE | 2024-12-03 17:14 | P.ORPRC_ITS ---
Procedure Note Date of procedure: 12/03/24 Procedure: PREOPERATIVE DIAGNOSIS: Left hip displaced femoral neck fracture POSTOPERATIVE DIAGNOSIS: Left hip displaced femoral neck fracture NAME OF OPERATION: Left hip cemented bipolar hemiarthroplasty SURGEON: Brandon Iverson MD BALL MILL MIXER: Donita Carlisle PA-C IMPLANTS: 1. Drummond cemented # 3 standard collared cemented stem 2. 28 + 5 cobalt chrome femoral head 3. 46 mm bipolar component ANESTHESIA: General ESTIMATED BLOOD LOSS: 50 cc COMPLICATIONS: None SPECIMENS: None DRAINS: None PREOPERATIVE ANTIBIOTICS: Ancef 1 g INDICATIONS: The patient is an 89-year-old who fell yesterday sustaining a left hip femoral neck fracture. The patient was admitted for workup and management. They have been medically cleared for surgery. Operative intervention was recommended. The risks, benefits and expected outcomes were discussed in detail. These included but were not limited to: Infection, bleeding, injury to blood vessel or nerve, venous thromboembolism. All questions were answered to their sat isfaction. Use of an certified teacher assistant was necessary throughout the case for patient positioning and safety, soft tissue retraction and closure. PROCEDURE: General anesthesia was administered. The patient was placed supine on the [place] table. The certified teacher assistant made sure the patient was properly positioned. The hip was prepped and draped in the usual sterile fashion. The image intensifier was brought in for a perfect AP pelvis and a perfect double tear drop AP view of each hip which were used for intraoperative templating with our fluoroscopic guide. A bikini incision was made just distal to the hip flexion crease. The certified teacher assistant retracted the soft tissues to protect them. Subcutaneous dissection was taken with electrocautery to the superficial fascia. The fascia was divided in line with the TFL fibers. Blunt dissection was carried medially to the tensor fascia roya and sartorius interval. Deep dissection was carried with electrocautery. The circumflex vessels were cauterized and divided. The capsule was exposed and then divided in a T-fashion, tagged with #1 Ethibond sutures. Retractors were placed in the joint, held by the certified teacher assistant. The neck cut was made just distal to the fracture. The corkscrew was placed in the femoral head. The femoral head was removed intact. The limb was placed in 140 degrees of external rotation, maximum extension and adduction. Retractors were held by the certified teacher assistant throughout the femoral preparation. The supervisor mattress and boxsprings and canal finder were used. Broaches were used to a stable size. The calcar reamer was used. Trial components were placed. The hip was reduced and was found to be stable with appropriate soft tissue tension. Length and offset had been nicely restored using the image intensifier and our fluoroscopic guide. Trial components were removed. The cement restrictor was placed. The canal was irrigated with pulse lavage then thoroughly dried. Cement was placed with the cement gun and hand pressurized. The # 3 Drummond cemented stem was placed in the canal. Excessive cement was removed, the cement was allowed to harden. The 28 mm + 5 cobalt chrome femoral head and the 46 mm bipolar component were placed. The hip was reduced and again was found to be stable with appropriate soft tissue tension. Leg lengths appear equal. The certified teacher assistant irrigated the wound with 3 liters of normal saline via pulse lavage. The certified teacher assistant repaired the anterior capsule with a #1 Vicryl and our previously placed Ethibond sutures. The certified teacher assistant closed the fascia over the tensor fascia roya with a #1 PDO Stratafix, subcutaneous tissues with 2-0 Vicryl, skin with a running 3-0 Stratafix and glue. A dry dressing was applied by the certified teacher assistant. Sponge and needle counts were correct x 2. The patient tolerated the procedure well; there were no apparent complications. They were awakened and extubated in the operating room, sent to the Post-Anesthesia Care Unit in satisfactory condition. PLAN: 1. The patient will be mobilized with physical therapy, weight-bearing as tolerates 2. Her usual dose of Xarelto can be restarted 3. The patient will be discharged once medically appropriate
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
--- NOTE | 2024-12-03 17:42 | P.ANES_ITS ---
Anesthesia Charges Start Date/Time Anesthesia Start Date: 12/03/24 Anesthesia Start Time: 15:05 Stop Date/Time Anesthesia Stop Date: 12/03/24 Anesthesia Stop Time: 17:34 Summary Extremes of Age - Over 70 or under 1: HEALTH POLICY NURSE Coding CPT Codes CPT Codes: ANESTH HIP JOINT SURGERY - 09829 ([id number]) P3 - PATIENT W/SEVERE SYS DISEASE, QZ - HEALTH POLICY NURSE SVC W/O CENTRAL STERILE SUPPLY TECHNICIAN BY Additional Codes: Summary - Extremes of Age - Over 70 or under 1: HEALTH POLICY NURSE ([id number])
--- NOTE | 2024-12-03 17:42 | W.ANESCHARGE ---
Anesthesia Charges Start Date/Time Anesthesia Start Date: 12/03/24 Anesthesia Start Time: 15:05 Stop Date/Time Anesthesia Stop Date: 12/03/24 Anesthesia Stop Time: 17:34 Summary Extremes of Age - Over 70 or under 1: REMOTE SENSING TECHNICIAN Coding CPT Codes CPT Codes: ANESTH HIP JOINT SURGERY - 44756 ([id number]) P3 - PATIENT W/SEVERE SYS DISEASE, QZ - REMOTE SENSING TECHNICIAN SVC W/O UNATTENDED GROUND SENSOR SPECIALIST BY Additional Codes: Summary - Extremes of Age - Over 70 or under 1: REMOTE SENSING TECHNICIAN ([id number])
--- NOTE | 2024-12-03 17:57 | SUR.PHASEI ---
Patient awake and clearing her throat. Taking ice chips. Oriented to place and time. No complaints of nausea or pain when asked.
--- NOTE | 2024-12-03 19:34 | PC.NURSE ---
Shift Summary: Patient confused throughout shift, difficulty with word finding and expressing concerns, per daughter this is patients baseline. Vitals stable and WNL. Pain managed with PRN medication and ice. Daughter gave consent for patients surgery since patient is unable to. Post-op patient is agitated related to monitoring devices/SCDs/nasal canula. At first patient denying pain however after 45min on floor c/o pain in left and PRN medication given. Dressing C/D/I. Patient requiring frequent reminding of situation. Watch taken off prior to surgery, daughter took home. Ring on ring finger taped prior to surgery, patient did return with ring on hand. Doyle patent, urine clear and straw.
[2024-12-03] MEDS: QUETIAPINE 25 MG TABLET PO (19:42)
[2024-12-03 20:00] LABS: Hemoglobin* 10.1 gm/dL (12.0-16.0)
[2024-12-03] MEDS: DIVALPROEX SODIUM 125 MG CAP.DR.SPR PO (21:55)
[2024-12-03] MEDS: ACETAMINOPHEN 500 MG TABLET 1000 MG PO (21:55)
[2024-12-03] MEDS: QUETIAPINE 100 MG TABLET PO (21:55)
[2024-12-03] MEDS: CEFAZOLIN 2 GM in 0.9 % SODIUM CHLORIDE Mini-bag 100 ML IVPB (23:55)
[2024-12-04] VITALS (7 sets, daily range): BP systolic 87–144; BP diastolic 45–64; PULSE 93–98; RESP 16–20; TEMP 36.6–37.3; O2SAT 91–94
--- NOTE | 2024-12-04 00:16 | PC.NURSE ---
Shift note ([id number]): Patient given 1:1 most of this shift. Given?one time dose of PRN Seroquel for anxiety/restlessness earlier this shift and Scheduled dose at HS. DSG clean, dry and intact. Remained in bed on bedrest. ?
[2024-12-04] MEDS: ACETAMINOPHEN 500 MG TABLET 1000 MG PO ×4 (04:04→21:56)
[2024-12-04 06:39] LABS: Hematocrit* 27.1 % (33.0-51.0); Hemoglobin* 8.7 gm/dL (12.0-16.0); Immature Granulocytes Pct Auto 0.7 %; Mean Corpuscular HGB Conc 32 gm/dL (32-36); Mean Corpuscular Hemoglobin 28 pg (26-34); Mean Corpuscular Volume 89 fL (80-100); RDW Coefficient of Variation % 13.3 % (11.5-15.5); Red Blood Count* 3.06 m/uL (4.00-5.20); White Blood Count* 12.80 K/uL (4.50-11.00)
[2024-12-04] MEDS: QUETIAPINE 25 MG TABLET PO (06:41)
[2024-12-04 06:46] LABS: Chloride* 104 mmol/L (96-114); Potassium* 4.3 mmol/L (3.6-5.1); Sodium* 133 mmol/L (135-149)
[2024-12-04 06:49] LABS: Anion Gap 5 mEq/L (7-15); Blood Urea Nitrogen* 23 mg/dL (7-30); Calcium* 8.5 mg/dL (8.4-10.6); Carbon Dioxide* 24 mmol/L (20-32); Creatinine* 0.9 mg/dL (0.5-1.5); Est. Creatinine Clearance* 35.22; Estimated Glomerular Filt Rate 61 ml/min; Glucose* 122 mg/dL (60-115); Immature Granulocytes Abs Auto 0.10 K/uL (0.00-0.30); Lymphocytes Absolute Auto 0.90 K/uL (0.90-2.90); Slide Review Reflex No
[2024-12-04] MEDS: 0.9 % SODIUM CHLORIDE 500 ML 500 ML IV (07:09)
[2024-12-04] MEDS: CEFAZOLIN 2 GM in 0.9 % SODIUM CHLORIDE Mini-bag 100 ML IVPB (07:35)
[2024-12-04] MEDS: RIVAROXABAN 10 MG TABLET PO (08:45)
[2024-12-04] MEDS: SERTRALINE 100 MG TABLET PO (08:45)
[2024-12-04] MEDS: POTASSIUM CHLORIDE 10 MEQ CAPSULE ER PO (08:45)
[2024-12-04] MEDS: QUETIAPINE 100 MG TABLET PO ×2 (08:45→20:02)
[2024-12-04] MEDS: SENNOSIDES 1 TAB TABLET 2 TAB PO ×2 (08:45→20:02)
[2024-12-04] MEDS: LACTATED RINGERS 1000 ML 1,000 ML 75 ML IV (08:48)
[2024-12-04] MEDS: DIVALPROEX SODIUM 125 MG CAP.DR.SPR PO ×2 (09:07→20:01)
--- NOTE | 2024-12-04 10:10 | PM.ORPN ---
Subjective Subjective Time Seen by Provider: 09:45 Date Seen: 12/04/24 Principal diagnosis: Day 1 s/p left hip bipolar hemiarthroplasty. DOS: 12/03/24, Dr. Iverson Interval history: Julita is resting comfortably in bed. History and our conversation was limited due to advanced dementia/Alzheimer's. Unable to assess current chest pain, SOB, fever, chills, nausea vomiting. For pain management, she is receiving acetaminophen and oxycodone PRN. She also required dilaudid overnight at 0400. No family was present during our visit. I received a phone call from Julita's nurse this morning regarding concerns with low fluid output of approx. 75cc overnight. A bladder scan was performed that showed 30cc. Patient has been receiving LR fluids this morning. BP 136/57. Ortho Exam Narrative Exam Narrative: Incision/Dressing: Dressing appears clean and dry. No drainage present. Mepilex intact. Left hip appears moderately swollen but supple with no obvious erythema, fluctuance or excessive warmth. No ecchymosis or erythematous streaking. Warmth around the wound is appropriate. Ice is being utilized as needed. CMS: Intact distally with 2+ Dorsalis pedis and Posterior Tibial pulses. Unable to assess motor strength with dorsal and plantar flexion. Unable to confirm sensation distally. Calf: Bilateral calves are supple, with no swelling, erythema, discoloration or coolness to the touch. Constitutional: Patient is resting comfortably. She is unable to respond appropriately to the conversation. No shortness of breath noted. Const Vital Signs, click to edit/add: Vital Signs - 24 hr 12/03/24 11:00 12/03/24 17:30 12/03/24 17:35 Temperature 98.4 F 99.0 F Pulse Rate 85 86 Pulse Rate [Pulse Oximeter] 93 Respiratory Rate 16 24 20 Blood Pressure 164/62 H 137/105 H Blood Pressure [Left Arm] 183/102 H Pulse Oximetry 96 91 100 Oxygen Delivery Method Room Air Aerosol Mask Oxygen Flow Rate 6 12/03/24 17:40 12/03/24 17:45 12/03/24 17:50 Temperature Pulse Rate 81 82 87 Pulse Rate [Pulse Oximeter] Respiratory Rate 20 24 24 Blood Pressure 143/70 H 131/82 136/77 Blood Pressure [Left Arm] Pulse Oximetry 100 100 93 Oxygen Delivery Method Aerosol Mask Room Air Oxygen Flow Rate 2 12/03/24 17:55 12/03/24 18:02 12/03/24 18:05 Temperature 97.9 F 97.7 F Pulse Rate 81 82 Pulse Rate [Pulse Oximeter] 80 Respiratory Rate 24 18 14 Blood Pressure 120/61 129/61 Blood Pressure [Left Arm] 101/50 L Pulse Oximetry 92 95 92 Oxygen Delivery Method Room Air Nasal Cannula Oxygen Flow Rate 2 12/03/24 18:15 12/03/24 18:30 12/03/24 18:45 Temperature 98 F 98.2 F 98.9 F Pulse Rate Pulse Rate [Pulse Oximeter] 83 84 93 Respiratory Rate 16 18 20 Blood Pressure Blood Pressure [Left Arm] 106/65 129/92 H 147/85 H Pulse Oximetry 90 94 90 Oxygen Delivery Method Nasal Cannula Nasal Cannula Nasal Cannula Oxygen Flow Rate 2 1 1 12/03/24 19:30 12/03/24 20:08 12/03/24 21:00 Temperature 98.7 F Pulse Rate Pulse Rate [Pulse Oximeter] 93 89 88 Respiratory Rate 24 16 Blood Pressure Blood Pressure [Left Arm] 131/71 129/61 129/60 Pulse Oximetry 94 90 94 Oxygen Delivery Method Room Air Room Air Room Air Oxygen Flow Rate 12/03/24 21:58 12/03/24 23:00 12/03/24 23:21 Temperature 98.3 F 98.0 F Pulse Rate Pulse Rate [Pulse Oximeter] 96 103 H Respiratory Rate 18 17 Blood Pressure Blood Pressure [Left Arm] 143/78 H 107/67 Pulse Oximetry 99 92 97 Oxygen Delivery Method Room Air Room Air Oxygen Flow Rate 12/03/24 23:58 12/04/24 00:30 12/04/24 01:00 Temperature 98.8 F Pulse Rate Pulse Rate [Pulse Oximeter] 101 H Respiratory Rate 16 Blood Pressure Blood Pressure [Left Arm] 92/50 L 87/45 L 95/52 L Pulse Oximetry 92 Oxygen Delivery Method Room Air Oxygen Flow Rate 12/04/24 03:09 12/04/24 07:00 12/04/24 07:00 Temperature Pulse Rate Pulse Rate [Pulse Oximeter] 95 93 Respiratory Rate 16 16 16 Blood Pressure Blood Pressure [Left Arm] 115/53 L Pulse Oximetry 94 91 Oxygen Delivery Method Room Air Room Air Oxygen Flow Rate 12/04/24 07:00 Temperature 97.8 F Pulse Rate Pulse Rate [Pulse Oximeter] 93 Respiratory Rate 16 Blood Pressure Blood Pressure [Left Arm] 136/57 L Pulse Oximetry 91 Oxygen Delivery Method Room Air Oxygen Flow Rate Assessment and Plan Assessment and plan (1) Closed fracture of left hip: Problem details: Left hip cemented bipolar hemiarthroplasty. DOS: 12/03/24, Dr. Iverson Status: Acute Assessment and Plan: - Regarding low urine output, I recommend Hospitalist consult and further management per their recommendations. - Mepilex dressing will remain in place x 10-14 days. Patient will likely be discharged to SNF. The nursing staff at this facility may remove these dressings in 10-14 days, perform a wound check and notify our Orthopedic clinic with any concerns. - Weight bear as tolerated with walker for assistance. - For pain management, recommend frequent icing, elevation and alternating Tylenol and Oxycodone PRN. ? - For DVT prophylaxis: restart her Xarelto. I also recommend ankle pumps when sedentary and frequent ambulation. - I anticipate Julita will be discharged to a SNF. Discharge timing unknown at this time. Discharge medications will be sent when the SNF location is known. - Patient will follow-up with an Orthopedic PA in 2 weeks for a wound check and clinical evaluation. - Patient will follow-up with Dr. Iverson at 6 weeks postoperative. - Notify Orthopedics with any questions or concerns. ([phone])
--- NOTE | 2024-12-04 10:26 | PM.IMPN1 ---
Assessment and Plan Assessment and plan (1) Closed fracture of left hip: Problem comment: Left hip cemented bipolar hemiarthroplasty. DOS: 12/03/24, Dr. Iverson 12/04: Patient's hemoglobin was stable, hemoglobin today morning is 8.7. Resumed Xarelto this morning. Urine output from 7:00 a.m. to 9:00 a.m. was adequate about 0.8 mL per kg per hour. Patient received a bolus of 500 mL IV fluids this morning. We will have PT/OT work with her today. Status: Acute (2) Fall: Problem comment: - slid off edge of bed on 12/02/2024 culminating in left femoral neck fracture - evolving unsteady gait Status: Acute (3) Dementia of Alzheimer's type with behavioral disturbance: Problem comment: - Advanced - patient at a higher risk for hospital delirium, and thus work closely with patient family Status: Acute (4) Homozygous Factor V Leiden mutation: Problem comment: - history of spontaneous venous thromboembolism - chronically anticoagulated with rivaroxaban 10 mg once daily - for now will hold the rivaroxaban preoperatively. - Xarelto dosage: For the 1st 6 months after DVT it should be full does at 20 mg daily, but for reduction in the risk of DVT/PE recurrence: XARELTO 10 mg once daily; Taken with or without food after 6 months of standard anticoagulant treatment in patients with CrCl =15 mL/min 12/04: hemoglobin today morning is 8.7. Resumed Xarelto this morning. Status: Acute (5) Chronic anticoagulation: Problem comment: - chronically anticoagulated with rivaroxaban 10 mg once daily - for now will hold the rivaroxaban preoperatively - Xarelto dosage: For the 1st 6 months after DVT it should be full does at 20 mg daily, but for reduction in the risk of DVT/PE recurrence: XARELTO 10 mg once daily; Taken with or without food after 6 months of standard anticoagulant treatment in patients with CrCl =15 mL/min 30: hemoglobin today morning is 8.7. Resumed Xarelto this morning. Status: Acute (6) History of venous thromboembolism: Problem comment: As above Status: Acute (7) Chronic vertebral fracture due to osteoporosis: Problem comment: CT: Redemonstration of moderate L1 superior endplate compression deformity. No acute displaced fracture is seen. Status: Acute Plan Resumed Xarelto this morning. PT/OT I discussed with her daughter who is her health proxy her current situation, dementia and other comorbidities and we discussed comfort care/hospice option whenever she feels comfortable doing that and she mentioned that were she lives at [facility] they have the hospice option. DC plan: Family wants [facility]/assisted living. Total Time Spent Total Time Spent: Today I spent 50 minutes seeing the patient, reviewing Expanse and EPIC notes/diagnostics, discussing the care plan with our care time that includes social work, PT/OT, pharmacy, RT, halfway and documenting my impressions and plan in the medical record. Subjective Date Seen: 12/04/24 Interval history: Patient was seen and examined at bedside today. Patient's hemoglobin was stable, hemoglobin today morning is 8.7. Will resume Xarelto this morning. Urine output from 7:00 a.m. to 9:00 a.m. was adequate about 0.8 mL per kg per hour. Patient received a bolus of 500 mL IV fluids this morning. We will have PT/OT work with her today. I discussed with her daughter who is her health proxy her current situation, dementia and other comorbidities and we discussed comfort care/hospice option whenever she feels comfortable doing that and she mentioned that were she lives at [facility] they have the hospice option. Exam Narrative: Exam Narrative: Physical exam GENERAL: Comfortable, no acute distress. Confused at baseline. HEAD AND NECK: Atraumatic, normocephalic CARDIOVASCULAR: RRR. Normal S1, S2. No murmurs. No lower extremity swelling, tenderness or redness. RESPIRATORY: Clear to auscultation B/L. Good air entry B/L. No wheezes or rhonchi. O2 sat 93% on room air. NEUROLOGY: Alert, awake, Confused at baseline. Const: Vital Signs, click to edit/add: Vital Signs - 24 hr 12/03/24 11:00 12/03/24 17:30 12/03/24 17:35 Temperature 98.4 F 99.0 F Pulse Rate 85 86 Pulse Rate [Pulse Oximeter] 93 Respiratory Rate 16 24 20 Blood Pressure 164/62 H 137/105 H Blood Pressure [Le ft Arm] 183/102 H Pulse Oximetry 96 91 100 Oxygen Delivery Me thod Room Air Aerosol Mask Oxygen Flow Rate 6 12/03/24 17:40 12/03/24 17:45 12/03/24 17:50 Temperature Pulse Rate 81 82 87 Pulse Rate [Pulse Oximeter] Respiratory Rate 20 24 24 Blood Pressure 143/70 H 131/82 136/77 Blood Pressure [Le ft Arm] Pulse Oximetry 100 100 93 Oxygen Delivery Me thod Aerosol Mask Room Air Oxygen Flow Rate 2 12/03/24 17:55 12/03/24 18:02 12/03/24 18:05 Temperature 97.9 F 97.7 F Pulse Rate 81 82 Pulse Rate [Pulse Oximeter] 80 Respiratory Rate 24 18 14 Blood Pressure 120/61 129/61 Blood Pressure [Le ft Arm] 101/50 L Pulse Oximetry 92 95 92 Oxygen Delivery Me thod Room Air Nasal Cannula Oxygen Flow Rate 2 12/03/24 18:15 12/03/24 18:30 12/03/24 18:45 Temperature 98 F 98.2 F 98.9 F Pulse Rate Pulse Rate [Pulse Oximeter] 83 84 93 Respiratory Rate 16 18 20 Blood Pressure Blood Pressure [Le ft Arm] 106/65 129/92 H 147/85 H Pulse Oximetry 90 94 90 Oxygen Delivery Me thod Nasal Cannula Nasal Cannula Nasal Cannula Oxygen Flow Rate 2 1 1 12/03/24 19:30 12/03/24 20:08 12/03/24 21:00 Temperature 98.7 F Pulse Rate Pulse Rate [Pulse Oximeter] 93 89 88 Respiratory Rate 24 16 Blood Pressure Blood Pressure [Le ft Arm] 131/71 129/61 129/60 Pulse Oximetry 94 90 94 Oxygen Delivery Me thod Room Air Room Air Room Air Oxygen Flow Rate 12/03/24 21:58 12/03/24 23:00 12/03/24 23:21 Temperature 98.3 F 98.0 F Pulse Rate Pulse Rate [Pulse Oximeter] 96 103 H Respiratory Rate 18 17 Blood Pressure Blood Pressure [Le ft Arm] 143/78 H 107/67 Pulse Oximetry 99 92 97 Oxygen Delivery Me thod Room Air Room Air Oxygen Flow Rate 12/03/24 23:58 12/04/24 00:30 12/04/24 01:00 Temperature 98.8 F Pulse Rate Pulse Rate [Pulse Oximeter] 101 H Respiratory Rate 16 Blood Pressure Blood Pressure [Le ft Arm] 92/50 L 87/45 L 95/52 L Pulse Oximetry 92 Oxygen Delivery Me thod Room Air Oxygen Flow Rate 12/04/24 03:09 12/04/24 07:00 12/04/24 07:00 Temperature Pulse Rate Pulse Rate [Pulse Oximeter] 95 93 Respiratory Rate 16 16 16 Blood Pressure Blood Pressure [Le ft Arm] 115/53 L Pulse Oximetry 94 91 Oxygen Delivery Me thod Room Air Room Air Oxygen Flow Rate 12/04/24 07:00 Temperature 97.8 F Pulse Rate Pulse Rate [Pulse Oximeter] 93 Respiratory Rate 16 Blood Pressure Blood Pressure [Le ft Arm] 136/57 L Pulse Oximetry 91 Oxygen Delivery Me thod Room Air Oxygen Flow Rate Labs Labs: Laboratory Results - last 24 hr 12/03/24 12/03/24 12/04/24 06:45 19:55 06:23 WBC 12.80 H RBC 3.06 L Hgb 10.1 L 8.7 L Hct 27.1 L MCV 89 MCH 28 MCHC 32 RDW Coeff of Heath 13.3 Plt Count 169 Neut % (Auto) 78.7 H Lymph % (Auto) 7.3 L Saunders % (Auto) 12.3 H Eos % (Auto) 0.8 Baso % (Auto) 0.2 Neut # (Auto) 10.10 H Lymph # (Auto) 0.90 Saunders # (Auto) 1.60 H Eos # (Auto) 0.10 Baso # (Auto) 0.00 Abs Immat Gran (auto) 0.10 Imm/Tot Granulo (auto) 0.7 Sodium 133 L Potassium 4.3 Chloride 104 Carbon Dioxide 24 Anion Gap 5 L BUN 23 Creatinine 0.9 Estimated Creat Clear 35.22 Estimated GFR 61 Glucose 122 H Calcium 8.5 Blood Type A Positive Antibody Screen NEGATIVE
--- NOTE | 2024-12-04 12:40 | PC.SOCIAL ---
Addendum entered by MIGUEL ANGEL Good 12/04/24 16:44: Discharge planning: tea plantation worker did also confirm with Rox from [facility] that they could evaluate the pt for a return to [facility] on their campus after she completes a short-term rehab stay at a [facility] facility. Social work to follow-up as needed. Addendum entered by MIGUEL ANGEL Good 12/04/24 16:39: Discharge planning: tea plantation worker heard back from Rox at [facility] stating that she left a message with the pt's daughter about [facility] not being able to take the pt at discharge from the hospital. tea plantation worker left a message with the pt's daughter asking for a call back to discuss further discharge planning. tea plantation worker did hear from Berta at [facility] that they have a female shared short-term rehab bed available on [facility] and this worker would like permission from the pt's daughter to send the referral there. Social work to follow-up as needed. Original Note: Discharge planning: tea plantation worker heard back from Rox at [facility] who reviewed the pt's notes(manager social work sent them via secure email this morning) and met with the nursing team at [facility] who stated that they did not feel they could meet the pt's needs at discharge at [facility] and would recommend she go to a [facility] facility for rehab. Rox will reach out to the pt's daughter to let her know this news/update. tea plantation worker will also reach back out to pt's daughter about further discharge planning. Social work to follow-up as needed.
[2024-12-04 16:52] LABS: Hemoglobin* 8.5 gm/dL (12.0-16.0)
[2024-12-04] MEDS: LACTATED RINGERS 1000 ML 1,000 ML 100 ML IV (19:25)
[2024-12-05] VITALS (14 sets, daily range): BP systolic 108–181; BP diastolic 55–87; PULSE 88–131; RESP 16–20; TEMP 36.4–37.1; O2SAT 91–97
[2024-12-05] MEDS: ACETAMINOPHEN 500 MG TABLET 1000 MG PO ×3 (04:29→21:05)
[2024-12-05] MEDS: 0.9 % SODIUM CHLORIDE 500 ML IV ×2 (04:46→23:23)
[2024-12-05 06:45] LABS: Hematocrit* 24.8 % (33.0-51.0); Mean Corpuscular HGB Conc 32 gm/dL (32-36); Mean Corpuscular Hemoglobin 28 pg (26-34); Mean Corpuscular Volume 89 fL (80-100); Red Blood Count* 2.78 m/uL (4.00-5.20); White Blood Count* 10.98 K/uL (4.50-11.00)
[2024-12-05 06:51] LABS: Chloride* 108 mmol/L (96-114)
[2024-12-05 06:52] LABS: Potassium* 3.7 mmol/L (3.6-5.1); Sodium* 135 mmol/L (135-149)
[2024-12-05 06:54] LABS: Blood Urea Nitrogen* 18 mg/dL (7-30); Creatinine* 0.9 mg/dL (0.5-1.5); Est. Creatinine Clearance* 35.61; Estimated Glomerular Filt Rate 61 ml/min
[2024-12-05 06:55] LABS: Anion Gap 4 mEq/L (7-15); Calcium* 8.1 mg/dL (8.4-10.6); Carbon Dioxide* 23 mmol/L (20-32); Glucose* 117 mg/dL (60-115)
[2024-12-05 06:59] LABS: Hemoglobin* 7.8 gm/dL (12.0-16.0)
[2024-12-05 07:00] LABS: Slide Review Reflex No
--- NOTE | 2024-12-05 07:42 | PC.NURSE ---
Shift note ([id number]): Patient 1:1 given for restlessness?last evening. Slept good from 2044 until approximately 553. Pt was restless after blood draw and reported that she needed to have a BM. Pt transferred with walker and assist of two to bedside commode. Pt reported pain in her hip and was given PRN Dilaudid. Has been resting comfortably since that time. DSG clean, dry and intact.?
[2024-12-05] MEDS: QUETIAPINE 100 MG TABLET PO ×2 (09:43→21:05)
[2024-12-05] MEDS: DIVALPROEX SODIUM 125 MG CAP.DR.SPR PO ×2 (09:43→21:01)
[2024-12-05] MEDS: RIVAROXABAN 10 MG TABLET PO (09:43)
[2024-12-05] MEDS: POTASSIUM CHLORIDE 10 MEQ CAPSULE ER PO (09:43)
[2024-12-05] MEDS: SENNOSIDES 1 TAB TABLET 2 TAB PO (09:43)
[2024-12-05] MEDS: SERTRALINE 100 MG TABLET PO (09:44)
--- NOTE | 2024-12-05 10:26 | P.IMPN_ITS ---
Assessment and Plan Assessment and plan (1) Acute blood loss anemia: Problem comment: -hemoglobin at admission was 10.8. -patient lost blood during surgery, was on Xarelto for previous DVT. -12/05: Hb 7.8, Patient is symptomatic on exertion, she is tachycardic to the 130s after few steps and is short of breath. - Will give 1 unit PRBCs for acute blood loss. Status: Acute (2) Closed fracture of left hip: Problem comment: Left hip cemented bipolar hemiarthroplasty. DOS: 12/03/24, Dr. Iverson 12/04: Patient's hemoglobin was stable, hemoglobin today morning is 8.7. Resumed Xarelto this morning. Urine output from 7:00 a.m. to 9:00 a.m. was adequate about 0.8 mL per kg per hour. Patient received a bolus of 500 mL IV fluids this morning. We will have PT/OT work with her today. 12/05: Hb 7.8, Patient is symptomatic on exertion, she is tachycardic to the 130s after few steps and is short of breath. - Will give 1 unit PRBCs for acute blood loss. Status: Acute (3) Fall: Problem comment: - slid off edge of bed on 12/02/2024 culminating in left femoral neck fracture - evolving unsteady gait Status: Acute (4) Dementia of Alzheimer's type with behavioral disturbance: Problem comment: - Advanced - patient at a higher risk for hospital delirium, and thus work closely with patient family Status: Acute (5) Homozygous Factor V Leiden mutation: Problem comment: - history of spontaneous venous thromboembolism - chronically anticoagulated with rivaroxaban 10 mg once daily - for now will hold the rivaroxaban preoperatively. - Xarelto dosage: For the 1st 6 months after DVT it should be full does at 20 mg daily, but for reduction in the risk of DVT/PE recurrence: XARELTO 10 mg once daily; Taken with or without food after 6 months of standard anticoagulant treatment in patients with CrCl =15 mL/min 12/04: hemoglobin today morning is 8.7. Resumed Xarelto this morning. Status: Acute (6) Chronic anticoagulation: Problem comment: - chronically anticoagulated with rivaroxaban 10 mg once daily - for now will hold the rivaroxaban preoperatively - Xarelto dosage: For the 1st 6 months after DVT it should be full does at 20 mg daily, but for reduction in the risk of DVT/PE recurrence: XARELTO 10 mg once daily; Taken with or without food after 6 months of standard anticoagulant treatment in patients with CrCl =15 mL/min 12/04: hemoglobin today morning is 8.7. Resumed Xarelto this morning. Status: Acute (7) History of venous thromboembolism: Problem comment: As above Status: Acute (8) Chronic vertebral fracture due to osteoporosis: Problem comment: CT: Redemonstration of moderate L1 superior endplate compression deformity. No acute displaced fracture is seen. Status: Acute Total Time Spent Total Time Spent: Today I spent 50 minutes seeing the patient, reviewing Expanse and EPIC notes/diagnostics, discussing the care plan with our care time that includes social work, PT/OT, pharmacy, RT, long-term and documenting my impressions and plan in the medical record. Subjective Date Seen: 12/05/24 Interval history: Patient was seen and examined at bedside today. Overnight, Patient 1:1 given for restlessness last evening. Early AM, she needed to have a BM. Pt transferred with walker and assist of two to bedside commode. This AM, Hb 7.8, Patient is symptomatic on exertion, she is tachycardic to the 130s after few steps and is short of breath. Will give 1 unit PRBCs for acute blood loss. Exam Narrative: Exam Narrative: Physical exam GENERAL: Pale, Confused (at baseline), no acute distress. HEAD AND NECK: Atraumatic, normocephalic CARDIOVASCULAR: RRR. Normal S1, S2. No murmurs. RESPIRATORY: Clear to auscultation B/L. Good air entry B/L. No wheezes or r honchi. NEUROLOGY: Alert, awake, confused at baseline. Const: Vital Signs, click to edit/add: Vital Signs - 24 hr 12/04/24 11:00 12/04/24 15:00 12/04/24 15:00 Temperature 98.0 F Pulse Rate [Pulse Oximeter] 93 97 Respiratory Rate 16 16 16 Blood Pressure [Le ft Arm] 101/64 Pulse Oximetry 93 92 Oxygen Delivery Me thod Room Air Room Air Oxygen Flow Rate 12/04/24 15:00 12/04/24 20:11 12/05/24 00:39 Temperature 99.1 F 98.7 F Pulse Rate [Pulse Oximeter] 97 98 Respiratory Rate 16 20 16 Blood Pressure [Le ft Arm] 121/62 144/56 H Pulse Oximetry 92 93 96 Oxygen Delivery Me thod Room Air Room Air Room Air Oxygen Flow Rate 12/05/24 00:39 12/05/24 03:00 12/05/24 07:00 Temperature 97.8 F 98.1 F Pulse Rate [Pulse Oximeter] 96 98 95 Respiratory Rate 16 20 18 Blood Pressure [Le ft Arm] 156/65 H 181/76 H Pulse Oximetry 94 94 Oxygen Delivery Me thod Room Air Nasal Cannula Oxygen Flow Rate 0.5 12/05/24 07:00 12/05/24 07:00 12/05/24 10:10 Temperature 98.1 F Pulse Rate [Pulse Oximeter] 95 131 H Respiratory Rate 18 18 Blood Pressure [Le ft Arm] 157/76 H 150/74 H Pulse Oximetry 91 91 92 Oxygen Delivery Me thod Room Air Room Air Oxygen Flow Rate Labs Labs: Laboratory Results - last 24 hr 12/04/24 12/05/24 16:23 05:49 WBC 10.98 RBC 2.78 L Hgb 8.5 L 7.8 L* Hct 24.8 L MCV 89 MCH 28 MCHC 32 Plt Count 172 Sodium 135 Potassium 3.7 Chloride 108 Carbon Dioxide 23 Anion Gap 4 L BUN 18 Creatinine 0.9 Estimated Creat Clear 35.61 Estimated GFR 61 Glucose 117 H Calcium 8.1 L Magnesium 1.7
--- NOTE | 2024-12-05 11:20 | PM.ORPN ---
Subjective Subjective Time Seen by Provider: 11:20 Date Seen: 12/05/24 Principal diagnosis: Day 2 s/p left hip bipolar hemiarthroplasty. DOS: 12/03/24, Dr. Iverson Interval history: Plan for Shayla is to discharge to a [facility] facility when she is medically stable and when a site has been finalized. She is sitting in a recliner this morning. Ortho Exam Narrative Exam Narrative: Alert and and not able to respond appropriately to conversation. Patient appears is in no acute distress. Converses without labored breathing. Hearing is grossly intact. Ambulates with a assist and walker. Examination of the left hip shows the dressing is in place and intact. No erythema or warmth or sign of infection. Soft tissue edema about the hip. 2+ distal pulses. She has unable to comprehend the direction of range her ankles dorsiflexion, plantar flexion. Calves are soft and nontender. Const Vital Signs, click to edit/add: Vital Signs - 24 hr 12/04/24 15:00 12/04/24 15:00 12/04/24 15:00 Temperature 99.1 F Pulse Rate [Pulse Oximeter] 97 97 Respiratory Rate 16 16 16 Blood Pressure [Left Arm] 121/62 Pulse Oximetry 92 92 Oxygen Delivery Method Room Air Room Air Oxygen Flow Rate 12/04/24 20:11 12/05/24 00:39 12/05/24 00:39 Temperature 98.7 F 97.8 F Pulse Rate [Pulse Oximeter] 98 96 Respiratory Rate 20 16 16 Blood Pressure [Left Arm] 144/56 H 156/65 H Pulse Oximetry 93 96 94 Oxygen Delivery Method Room Air Room Air Room Air Oxygen Flow Rate 12/05/24 03:00 12/05/24 07:00 12/05/24 07:00 Temperature 98.1 F Pulse Rate [Pulse Oximeter] 98 95 Respiratory Rate 20 18 18 Blood Pressure [Left Arm] 181/76 H Pulse Oximetry 94 91 Oxygen Delivery Method Nasal Cannula Room Air Oxygen Flow Rate 0.5 12/05/24 07:00 12/05/24 10:10 12/05/24 11:00 Temperature 98.1 F 97.9 F Pulse Rate [Pulse Oximeter] 95 131 H 100 Respiratory Rate 18 18 Blood Pressure [Left Arm] 157/76 H 150/74 H 108/55 L Pulse Oximetry 91 92 95 Oxygen Delivery Method Room Air Room Air Oxygen Flow Rate Documenting provider has reviewed patient's vital signs: yes Assessment and Plan Assessment and plan (1) Acute blood loss anemia: Problem details: -hemoglobin at admission was 10.8. -patient lost blood during surgery, was on Xarelto for previous DVT. -12/05: Hb 7.8, Patient is symptomatic on exertion, she is tachycardic to the 130s after few steps and is short of breath. - Will give 1 unit PRBCs for acute blood loss. Status: Acute Assessment and Plan: Shayla will be getting blood today. Hemoglobin 7.8. Elevated heart rate. (2) History of hemiarthroplasty of left hip: Problem details: Left hip cemented bipolar hemiarthroplasty (12/03/2024, Dr. Iverson) Status: Acute Assessment and Plan: Probable be discharging to a [facility] facility when medically stable and when a [facility] facility has been finalized. Weightbear as tolerated with walker DVT prophylaxis Xarelto daily Follow-up appoint with Dr. Iverson in 4-6 weeks, no need to see PA at 2 weeks since she will be at a [facility] facility. Remove dressing in 2 weeks. Physical therapy at [facility] facility.
--- NOTE | 2024-12-05 13:08 | PC.SOCIAL ---
Discharge planning: Pt's referral is being reviewed/assessed for short-term rehab placement at [facility] in one of their female shared bedrooms on their [facility]. Pt's daughter has connected with Berta in admissions at [facility]. [facility] is reviewing pt's financials/insurance and also connecting with JINA Gramajo at [facility] about discharge plans from rehab. Social work to follow-up as needed.
--- NOTE | 2024-12-05 19:18 | PC.NURSE ---
end of shift. patient had 1 unit PRBC. tolerated infusion well.
[2024-12-06] MEDS: 0.9 % SODIUM CHLORIDE 500 ML IV (03:40)
[2024-12-06 06:40] LABS: Hematocrit* 29.9 % (33.0-51.0); Hemoglobin* 9.4 gm/dL (12.0-16.0); Mean Corpuscular HGB Conc 31 gm/dL (32-36); Mean Corpuscular Hemoglobin 28 pg (26-34); Mean Corpuscular Volume 90 fL (80-100); Red Blood Count* 3.34 m/uL (4.00-5.20); White Blood Count* 10.49 K/uL (4.50-11.00)
[2024-12-06 06:41] LABS: Slide Review Reflex No
[2024-12-06 07:00] VITALS: BP 160/93; PULSE 105; RESP 20; TEMP 36.9; O2SAT 93
[2024-12-06 07:11] LABS: Chloride* 109 mmol/L (96-114); Potassium* 3.7 mmol/L (3.6-5.1); Sodium* 136 mmol/L (135-149)
[2024-12-06 07:14] LABS: Blood Urea Nitrogen* 19 mg/dL (7-30); Creatinine* 0.9 mg/dL (0.5-1.5); Est. Creatinine Clearance* 36.87; Estimated Glomerular Filt Rate 61 ml/min
[2024-12-06 07:15] LABS: Anion Gap 6 mEq/L (7-15); Calcium* 8.4 mg/dL (8.4-10.6); Carbon Dioxide* 21 mmol/L (20-32); Glucose* 96 mg/dL (60-115)
--- NOTE | 2024-12-06 07:28 | PC.NURSE ---
Shift note ([id number]): 300mL total urine output since 2300. Patient slept for most of the night. Was restless after being awakened for HS meds. Given scheduled Tylenol and?PRN Dilaudid for c/o pain at that time.?Total urine output from 1100 to 2330 was 100mL. MD updated. Per Dr Martinez give PRN 500mL NS?bolus now, repeat PRN bolus in 4hrs if urine output less than 150mL. Urine output at 0400?was 100mL. Second 500mL NS bolus given at that time. LS re-assessed?and continued?to be clear prior to administration of second bolus. Patient has had an additional 200mL of urine output since second bolus given. ?
--- NOTE | 2024-12-06 08:24 | PM.ORPN ---
Subjective Subjective Time Seen by Provider: 08:30 Date Seen: 12/06/24 Principal diagnosis: Day 2 s/p left hip bipolar hemiarthroplasty. DOS: 12/03/24, Dr. Iverson Interval history: Julita is resting comfortably in bed. History and our conversation was limited due to advanced dementia/Alzheimer's. Unable to assess current chest pain, SOB, fever, chills, nausea vomiting. Pain appears well managed with acetaminophen and hydromorphone PRN. No family was present during our visit. Ortho Exam Narrative Exam Narrative: Incision/Dressing: Dressing appears clean, dry and intact. Left hip appears moderately swollen but supple with no obvious erythema, fluctuance or excessive warmth. No ecchymosis or erythematous streaking. Warmth around the wound is appropriate. Ice is being utilized as needed. CMS: Intact distally with 2+ Dorsalis pedis and Posterior Tibial pulses. Unable to assess motor strength with dorsal and plantar flexion. Unable to confirm sensation distally. Calf: Bilateral calves are supple, with no swelling, erythema, discoloration or coolness to the touch. Patient is unable to notify whether or not she has calf tenderness to palpation, however there are no obvious signs of pain to calf palpation. Constitutional: Patient is resting comfortably. She is alert but unable to respond appropriately to the conversation. No acute distress. No shortness of breath noted. Const Vital Signs, click to edit/add: Vital Signs - 24 hr 12/05/24 10:10 12/05/24 11:00 12/05/24 12:20 Temperature 97.9 F 97.7 F Pulse Rate 99 Pulse Rate [Pulse Oximeter] 131 H 100 Respiratory Rate 18 16 Blood Pressure 119/60 Blood Pressure [Left Arm] 150/74 H 108/55 L Pulse Oximetry 92 95 93 Oxygen Delivery Method Room Air Room Air 12/05/24 12:40 12/05/24 13:10 12/05/24 13:40 Temperature 97.6 F 97.7 F 97.7 F Pulse Rate 91 95 92 Pulse Rate [Pulse Oximeter] Respiratory Rate 16 16 16 Blood Pressure 126/59 L 110/87 113/58 L Blood Pressure [Left Arm] Pulse Oximetry 93 97 92 Oxygen Delivery Method Room Air Room Air Room Air 12/05/24 14:10 12/05/24 14:25 12/05/24 15:00 Temperature 97.7 F 97.6 F Pulse Rate 89 88 Pulse Rate [Pulse Oximeter] 92 Respiratory Rate 16 16 16 Blood Pressure 129/64 117/64 Blood Pressure [Left Arm] Pulse Oximetry 92 92 Oxygen Delivery Method Room Air Room Air 12/05/24 15:00 12/05/24 15:00 12/05/24 15:30 Temperature 97.7 F 97.7 F Pulse Rate 88 Pulse Rate [Pulse Oximeter] 92 Respiratory Rate 16 16 16 Blood Pressure 146/75 H Blood Pressure [Left Arm] 111/65 Pulse Oximetry 93 93 93 Oxygen Delivery Method Room Air Room Air Room Air 12/05/24 20:56 12/06/24 07:00 Temperature 98.8 F 98.5 F Pulse Rate Pulse Rate [Pulse Oximeter] 98 105 H Respiratory Rate 19 20 Blood Pressure Blood Pressure [Left Arm] 155/77 H 160/93 H Pulse Oximetry 92 93 Oxygen Delivery Method Room Air Room Air Assessment and Plan Assessment and plan (1) History of hemiarthroplasty of left hip: Problem details: Left hip cemented bipolar hemiarthroplasty (12/03/2024, Dr. Iverson) Status: Acute Assessment and Plan: - I called and spoke with patient's daughter, Karina, to provide an Orthopedic update. She asked questions related to discharge planning. I told her I do not have that information at this time. - Mepilex dressing will remain in place x 10-14 days. Patient will likely be discharged to SNF. The nursing staff at this facility may remove these dressings in 10-14 days, perform a wound check and notify our Orthopedic clinic with any concerns. - Weight bear as tolerated with a walker for assistance. - For pain management, recommend frequent icing, elevation and alternating Tylenol and Oxycodone PRN. ? - For DVT prophylaxis: restart her Xarelto. I also recommend ankle pumps when sedentary and frequent ambulation. - I anticipate Julita will be discharged to a SNF. Discharge timing unknown at this time. Discharge medications will be sent when the SNF location is known. - Patient will follow-up with Dr. Iverson at 4-6 weeks postoperative. - Notify Orthopedics with any questions or concerns. ([phone])
[2024-12-06] MEDS: ACETAMINOPHEN 500 MG TABLET 1000 MG PO (09:03)
[2024-12-06] MEDS: SENNOSIDES 1 TAB TABLET 2 TAB PO (09:05)
[2024-12-06] MEDS: POTASSIUM CHLORIDE 10 MEQ CAPSULE ER PO (09:07)
[2024-12-06] MEDS: SERTRALINE 100 MG TABLET PO (09:07)
[2024-12-06] MEDS: QUETIAPINE 100 MG TABLET PO (09:07)
[2024-12-06] MEDS: DIVALPROEX SODIUM 125 MG CAP.DR.SPR PO (09:07)
[2024-12-06] MEDS: RIVAROXABAN 10 MG TABLET PO (09:07)
[2024-12-06 09:14] VITALS: BMI 27.6
[2024-12-06 11:00] VITALS: BP 149/65; PULSE 93; RESP 20; TEMP 36.4; O2SAT 92
--- NOTE | 2024-12-06 11:48 | P.DS_ITS ---
DS: Providers Provider Date Seen: 12/06/24 Date of admission: 12/02/24 20:09 Primary care physician: Sagar Livingston MD Admitting Clinician: Shahram Pedroza MD Consults: 12/02/24 20:40 Consult to Occupational Therapy [CONS] Routine Comment: Reason(s) for OT Consult:: Evaluate and Treat Any Restrictions?:: No Restrictions Comment: L hip fx 12/02/2024; advanced late-onset Alzheimer's dementia Consult to Physical Therapy [CONS] Routine Comment: Reason(s) for PT Consult:: Evaluate and Treat Any Restrictions?:: No Restrictions Comment: L hip fx 12/02/2024; advanced late-onset Alzheimer's dementia Consult to Germination Testing Manager [CONS] Routine Comment: Reason for Consult:: Discharge Planning Needs 12/02/24 23:08 Consult to Germination Testing Manager [CONS] Routine Comment: Reason for Consult:: Social Service Consult 12/03/24 18:13 Consult to Occupational Therapy [CONS] Routine Comment: Reason(s) for OT Consult:: ADLs Prior to Discharge Any Restrictions?:: No Restrictions Comment: Consult to Physical Therapy [CONS] Routine Comment: Ambulate in the belcher today Reason(s) for PT Consult:: THR TX Protocol POD#0 Any Restrictions?:: No Restrictions Comment: Nursing Activity: See nursing activity order Consult to Physician [CONS] Routine Comment: Consulting Provider: Hospitalists Has provider been notified: No Attending Physician on discharge: Shahram Pedroza MD DS: Diagnosis Discharge Diagnosis (1) Acute blood loss anemia: Status: Acute Problem details: -hemoglobin at admission was 10.8. -patient lost blood during surgery, was on Xarelto for previous DVT. -12/05: Hb 7.8, Patient is symptomatic on exertion, she is tachycardic to the 130s after few steps and is short of breath. - Will give 1 unit PRBCs for acute blood loss. -12/06: Hb 9.4 (2) Closed fracture of left hip: Status: Acute Problem details: Left hip cemented bipolar hemiarthroplasty. DOS: 12/03/24, Dr. Iverson 12/04: Patient's hemoglobin was stable, hemoglobin today morning is 8.7. Resumed Xarelto this morning. Urine output from 7:00 a.m. to 9:00 a.m. was adequate about 0.8 mL per kg per hour. Patient received a bolus of 500 mL IV fluids this morning. We will have PT/OT work with her today. 12/05: Hb 7.8, Patient is symptomatic on exertion, she is tachycardic to the 130s after few steps and is short of breath. - Will give 1 unit PRBCs for acute blood loss. (3) Fall: Status: Acute Problem details: - slid off edge of bed on 12/02/2024 culminating in left femoral neck fracture - evolving unsteady gait (4) Dementia of Alzheimer's type with behavioral disturbance: Status: Acute Problem details: - Advanced - patient at a higher risk for hospital delirium, and thus work closely with patient family (5) Homozygous Factor V Leiden mutation: Status: Acute Problem details: - history of spontaneous venous thromboembolism - chronically anticoagulated with rivaroxaban 10 mg once daily - for now will hold the rivaroxaban preoperatively. - Xarelto dosage: For the 1st 6 months after DVT it should be full does at 20 mg daily, but for reduction in the risk of DVT/PE recurrence: XARELTO 10 mg once daily; Taken with or without food after 6 months of standard anticoagulant treatment in patients with CrCl =15 mL/min 12/04: hemoglobin today morning is 8.7. Resumed Xarelto this morning. 12/06: 1 unit packed RBCs was given yesterday hemoglobin stable today. (6) Chronic anticoagulation: Status: Acute Problem details: - chronically anticoagulated with rivaroxaban 10 mg once daily - for now will hold the rivaroxaban preoperatively - Xarelto dosage: For the 1st 6 months after DVT it should be full does at 20 mg daily, but for reduction in the risk of DVT/PE recurrence: XARELTO 10 mg once daily; Taken with or without food after 6 months of standard anticoagulant treatment in patients with CrCl =15 mL/min 12/04: hemoglobin today morning is 8.7. Resumed Xarelto this morning. (7) History of venous thromboembolism: Status: Acute Problem details: As above (8) Chronic vertebral fracture due to osteoporosis: Status: Acute Problem details: CT: Redemonstration of moderate L1 superior endplate compression deformity. No acute displaced fracture is seen. DS: Summary Hospital Course Hospital Course: Julita Neville is a 89 year old woman with advanced late onset Alzheimer's dementia who resides at [facility] presents for fall and was found to have left hip fracture. Patient was admitted and Orthopedics underwent ORIF for hip. Patient was found to have acute blood loss anemia and received 1 unit of packed RBCs. Patient resumed Xarelto 10 mg daily because of history of DVT and she needs to continue on that. P.T./OT were consulted and they recommended rehab in a senior living facility. Primary care physician follow-up in 1-2 weeks. PCP to decide if patient is still needing divalproex medication. Patient with severe dementia, she will need help with eating and drinking, she will need for consistent encouragement to drink water to keep her kiidney function within normal. Status at Discharge Functional status at discharge: uses cane/walker Overall status at discharge: patient is progressing back to baseline Time Spent with Patient Time attestation: Total time spent providing and/or coordinating discharge services: 50 min Exam Narrative: Exam Narrative: Physical exam GENERAL: Confused at baseline, no acute distress. HEAD AND NECK: Atraumatic, normocephalic CARDIOVASCULAR: RRR. Normal S1, S2. No murmurs. RESPIRATORY: Clear to auscultation B/L. Good air entry B/L. No wheezes or rhonchi. NEUROLOGY: Alert, awake, confused. Const: Vital Signs, click to edit/add: Vital Signs - 24 hr 12/05/24 12:20 12/05/24 12:40 12/05/24 13:10 Temperature 97.7 F 97.6 F 97.7 F Pulse Rate 99 91 95 Pulse Rate [Pulse Oximeter] Respiratory Rate 16 16 16 Blood Pressure 119/60 126/59 L 110/87 Blood Pressure [Le ft Arm] Pulse Oximetry 93 93 97 Oxygen Delivery Me thod Room Air Room Air Room Air 12/05/24 13:40 12/05/24 14:10 12/05/24 14:25 Temperature 97.7 F 97.7 F 97.6 F Pulse Rate 92 89 88 Pulse Rate [Pulse Oximeter] Respiratory Rate 16 16 16 Blood Pressure 113/58 L 129/64 117/64 Blood Pressure [Le ft Arm] Pulse Oximetry 92 92 92 Oxygen Delivery Me thod Room Air Room Air Room Air 12/05/24 15:00 12/05/24 15:00 12/05/24 15:00 Temperature 97.7 F Pulse Rate Pulse Rate [Pulse Oximeter] 92 92 Respiratory Rate 16 16 16 Blood Pressure Blood Pressure [Le ft Arm] 111/65 Pulse Oximetry 93 93 Oxygen Delivery Me thod Room Air Room Air 12/05/24 15:30 12/05/24 20:56 12/06/24 07:00 Temperature 97.7 F 98.8 F 98.5 F Pulse Rate 88 Pulse Rate [Pulse Oximeter] 98 105 H Respiratory Rate 16 19 20 Blood Pressure 146/75 H Blood Pressure [Le ft Arm] 155/77 H 160/93 H Pulse Oximetry 93 92 93 Oxygen Delivery Me thod Room Air Room Air Room Air 12/06/24 07:00 Temperature Pulse Rate Pulse Rate [Pulse Oximeter] Respiratory Rate Blood Pressure Blood Pressure [Le ft Arm] Pulse Oximetry 93 Oxygen Delivery Me thod Room Air DS: Data Data Completed and Pending Labs on day of discharge: Labs from last 24 hours 12/06/24 12/03/24 05:51 06:45 WBC 10.49 RBC 3.34 L Hgb 9.4 L Hct 29.9 L MCV 90 MCH 28 MCHC 31 L Plt Count 180 Sodium 136 Potassium 3.7 Chloride 109 Carbon Dioxide 21 Anion Gap 6 L BUN 19 Creatinine 0.9 Estimated Creat Clear 36.87 Estimated GFR 61 Glucose 96 Calcium 8.4 Blood Type A Positive Antibody Screen NEGATIVE Crossmatch (AHG) See Detail Discharge Plan Discharge Disposition: [facility] Date of Admission: 12/02/24 20:09 Attending Provider on Discharge: Vonnie Marroquin Consulting Providers: Vonnie Marroquin; Megha Martinez; Humberto Barriga; Keven Oscar; Huey Orozco; Mega Ortega; Arabella Joiner; Marva Bradley; Danyell Disla; Shahram Pedroza; Carisa Gordon; Jake Johnson; Milo Nichols; Nicky Tang; Celso Laurent; Amrit Winston; Olivia Almodovar; Tad Hu; Veronique Tavarez; Radha Call; Cheyenne Carreno; Kendra Light; Abigail Ulloa; Silvia Kaur; Janna Hanna; Opal Hanna; Geronimo Kenyon; Shay Mcdaniel; Alfonso Chisholm; Roberta Neves; Sylvie Castillo; Jose Luis Veliz Primary Care Provider: Sagar Livingston Condition: Stable Anticipated Discharge Date/Time: 12/06/24 11:24 Discharge Medications: New divalproex 125 mg Capsule, Delayed Rel Sprinkle 125 mg PO BID 30 Days Qty: 60 0RF hydroxyzine pamoate 25 mg Capsule 25 mg PO Q8H PRN30 Days Qty: 30 0RF acetaminophen 500 mg Tablet 1,000 mg PO Q8H PRN (Reason: pain) 15 Days Qty: 90 0RF Continued Xarelto 10 mg tablet 10 mg PO QPM cyanocobalamin (vitamin B-12) [Vitamin B-12] 1,000 mcg tablet 1,000 mcg PO DAILY dicyclomine 20 mg tablet 20 mg PO QID PRN (Reason: abdominal pain) Qty: 20 0RF oxycodone 5 mg tablet 5 mg PO TID Rx Instructions: AND EVERY 4 HOURS PRN bisacodyl 10 mg suppository 10 mg CA DAILY PRN alum-mag hydroxide-simeth [Antacid] 200-200-20 mg/5 mL suspension 30 ml PO DAILY PRN loperamide [Diamode] 2 mg tablet 2 mg PO Q6H PRN magnesium hydroxide [Milk of Magnesia] 400 mg/5 mL suspension 30 ml PO Q48H PRN quetiapine 100 mg tablet 100 mg PO BID quetiapine 50 mg tablet 50 mg PO Q4H PRN sennosides [Alisa-babar] 8.6 mg tablet 8.6 mg PO DAILY PRN sennosides [Natural Senna Laxative] 8.6 mg tablet 8.6 mg PO BID sertraline 100 mg tablet 100 mg PO DAILY trazodone 100 mg tablet 100 mg PO HS Discontinued acetaminophen 500 mg tablet 1,000 mg PO TID Discharge Orders: Discharge Order (Routine); Ordered 12/06/24 Ordered By: Vonnie Marroquin Additional Instructions: X-rays of her lumbar spine did show degenerative changes, no acute fracture. She certainly could have underlying back pain from arthritis and degenerative changes of her spine. Head CT imaging with a follow-up head CT to ensure no bleeding was done. Primary care physician follow-up in 1-2 weeks. PCP to decide if patient is still needing divalproex medication. Patient with severe dementia, she will need help with eating and drinking, she will need for consistent encouragement to drink water to keep her kiidney function within normal. Activity Level: Activity as Tolerated and Use Walker Activity Detail: Keep dressing on for 2 weeks. Dressing is waterproof. Change dressing if needed. May shower. Attend physical therapy at senior living facility. Ice and elevate operative extremity without restriction. Swelling and bruising will worsen within the first week. When swelling occurs, elevate the extremity above heart level several times a day and gently massage/pull soft tissue swelling toward hip. This allows gravity to assist in eliminating the swelling/edema. Wear compression stockings/len bandages as needed for swelling. Ambulate frequently throughout the day. Notify Orthopedics with any questions or concerns. ([phone]) Weightbear as tolerated left lower extremity. Discharge Diet: Regular Follow Up Appointments: Sagar Livingston MD [Primary Care Provider, [facility]] [facility] Instructions Discharge Comments: Please make a postoperative appointment with Dr. Iverson in 4-6 weeks. Admit to: SNF Discharge Potential: Fair Length of Stay: 30-90 days Can use facility standing orders?: Yes Code Status: DNR/DNI TEDs: Bilateral Knee Rehab Potential: Fair Therapy: Physical Therapy and Occupational Therapy Therapy Orders: Evaluate and Treat Oxygen: No Urinary Catheter: No
--- NOTE | 2024-12-06 14:26 | PC.NURSE ---
Discharge note?? ? Patient was restless and slightly agitated at the beginning of the shift due to poor pain control. Patient has a history of dementia and was admitted for a Hip Fx. Pain was successfully controlled, and the patient?s behavior became calmer and more cooperative through the morning. Patient is being transferred to [facility] for rehab. Catheter has been discontinued, and brief is in place.?Discharged to EMS at 14:20 on 12/06/24?
--- NOTE | 2024-12-06 15:30 | PC.SOCIAL ---
Addendum entered by MIGUEL ANGEL Good 12/06/24 15:50: Discharge planning: Pt also required use of a stretcher for transport; therefore, insurance should cover the cost of non-emergent EMS transport. Social work to follow-up as needed. Original Note: Discharge planning: Pt was discharged to [facility] today for short-term rehab on their [facility] in a private room/shared bathroom. Pt was transported via non-emergent EMS. Pt's insurance should cover the cost of transport for the pt from the hospital to [facility] due to her Dementia diagnosis and need for supervision. Pt also requires a two person assist right now due to her hip fracture/surgery. dry drug worker secure emailed discharge orders and the pre-admission screening to Berta at [facility]. [id number]. dry drug worker discussed the Important Message from Medicare form with the pt's daughter/POA, Karina, over the phone and her daughter had no concerns with the pt discharging to [facility] today. Social work to follow-up as needed.
== END 2024-12-06 14:20 | DRG 522 ==
LOC: ED 19:34 → MEDSURG 20:09
PROVIDERS: Emergency Medicine; Family Medicine; Orthopaedic Surgery; Student in an Organized Health Care Education/Training Program; Admitting Provider Internal Medicine; Emergency Provider Family Medicine; PCP Family Medicine; Visit Provider Internal Medicine
PROC: 0SRS019 Replacement of Left Hip Joint, Femoral Surface with Metal Synthetic Substitute, Cemented, Open Approach (ICD-10-PCS; principal; 2024-12-03 15:00)
DX: S72.002A Fracture of unspecified part of neck of left femur, initial encounter for closed fracture (principal); F02.818 Dementia in other diseases classified elsewhere, unspecified severity, with other behavioral disturbance; D68.51 Activated protein C resistance; D62 Acute posthemorrhagic anemia; G89.18 Other acute postprocedural pain; W06.XXXA Fall from bed, initial encounter; Y92.003 Bedroom of unspecified non-institutional (private) residence as the place of occurrence of the external cause; G30.9 Alzheimer's disease, unspecified; Z79.01 Long term (current) use of anticoagulants; F32.A Depression, unspecified; F41.9 Anxiety disorder, unspecified; M80.88XD Other osteoporosis with current pathological fracture, vertebra(e), subsequent encounter for fracture with routine healing; Z86.718 Personal history of other venous thrombosis and embolism
CPT/HCPCS: 01210; 36415; 36430; 51701; 51798; 70450; 72100; 73501; 73502; 76000; 80048; 82803; 83605; 83735; 84100; 84443; 85018; 85025; 85027; 85610; 86850; 86900; 86901; 86922; 87081; 93005; 97110; 97116; 97162; 97165; 97530; 97535; 99100; 99285; A9270; C1776; J0330; J0690; J1171; J2270; J2704; J3010; J3490; J7030; J7120; P9016

== ENCOUNTER 2024-12-06 14:15 | Outpatient (CLI) | payer MEDICARE, SELFPAY | END 2024-12-06 14:16 | disposition home or self-care (01) | PROVIDERS: PCP Family Medicine; Visit Provider Family Medicine | DX: D62 Acute posthemorrhagic anemia (principal); G30.9 Alzheimer's disease, unspecified; S72.002A Fracture of unspecified part of neck of left femur, initial encounter for closed fracture; M80.08XA Age-related osteoporosis with current pathological fracture, vertebra(e), initial encounter for fracture | CPT/HCPCS: A0425; A0428 ==

== ENCOUNTER 2024-12-11 08:44 | Outpatient (REF) | payer OTHER, SELFPAY ==
[2024-12-11 08:58] LABS: Appearance Urine Cloudy (Clear)
== END 2024-12-11 08:45 | disposition home or self-care (01) ==
LOC: NPINS 08:44
PROVIDERS: PCP Family Medicine; Referring Provider Nurse Practitioner Gerontology; Visit Provider Nurse Practitioner Gerontology
DX: R33.8 Other retention of urine (principal); N39.0 Urinary tract infection, site not specified
CPT/HCPCS: 81001; 81003; 87086